=== PATIENT | female | born 1940 | race Caucasian/White ===

== ENCOUNTER 2020-04-10 14:30 | Outpatient (CLI) | payer MEDICARE, OTHER, SELFPAY ==
--- NOTE | ~2020-04-10 | MM_ITS ---
EXAMINATION: MM screening brenda BI w shiv HISTORY: Screening mammogram TECHNIQUE: Craniocaudal and mediolateral oblique 3-D tomosynthesis images were obtained and synthetic 2-D images were generated. CAD analysis was submitted and interpreted. COMPARISON: No prior mammogram is available for comparison at this institution. BREAST PARENCHYMAL COMPOSITION: There are scattered areas of fibroglandular density. FINDINGS: There is no evidence of suspicious mass, calcification, or architectural distortion to sugg est malignancy in either breast. There has been no suspicious interval change. IMPRESSION: 1. No mammographic evidence of malignancy. 2. Recommend routine screening mammography in one year. BI-RADS Category 1: Negative Reviewed, dictated and finalized at location A.
== END 2020-04-10 14:31 | disposition home or self-care (01) ==
LOC: ANHIMG 14:37
DX: Z12.31 Encounter for screening mammogram for malignant neoplasm of breast (principal)
CPT/HCPCS: 77063; 77067

== ENCOUNTER 2021-04-12 09:26 | Outpatient (CLI) | payer MEDICARE, OTHER, SELFPAY ==
--- NOTE | ~2021-04-12 | MM_ITS ---
EXAMINATION: MM screening brenda BI w shiv HISTORY: Screening mammogram TECHNIQUE: Craniocaudal and mediolateral oblique 3-D tomosynthesis images were obtained and synthetic 2-D images were generated. CAD analysis was submitted and interpreted. COMPARISON: 04/10/2020 BREAST PARENCHYMAL COMPOSITION: The breasts are heterogeneously dense, which may obscure small masses . FINDINGS: Scattered benign-appearing calcifications are present. There is no evidence of suspicious m ass, calcification, or architectural distortion to suggest malignancy in either breast. There has bee n no suspicious interval change. IMPRESSION: 1. No mammographic evidence of malignancy. 2. Recommend routine screening mammography while the patient remains in good health. BI-RADS Category 2: Benign finding(s). Reviewed, dictated and finalized at location A. IMPRESSION: 1. No mammographic evidence of malignancy. 2. Recommend routine screening mammography while the patient remains in good he alth. BI-RADS Category 2: Benign finding(s).
== END 2021-04-12 09:27 | disposition home or self-care (01) ==
DX: Z12.31 Encounter for screening mammogram for malignant neoplasm of breast (principal)
CPT/HCPCS: 77063; 77067

== ENCOUNTER 2021-07-18 07:20 | Emergency (ER) | payer MEDICARE, OTHER, SELFPAY ==
[2021-07-18] VITALS (25 sets, daily range): BP systolic 93–139; BP diastolic 47–77; PULSE 55–72; RESP 18–20; TEMP 36.4–36.7; O2SAT 94–100
--- NOTE | ~2021-07-18 | CT_ITS ---
EXAMINATION: CT chest abdomen pelvis wo con DATE: 07/18/2021 10:57 INDICATION: Back pain, concern for aortic dissection, contrast allergy TECHNIQUE: Transaxial computed tomographic images of the chest, abdomen, and pelvis were obtained aft er the administration of without intravenous contrast. The dose-length product (DLP) was 385.47 mGy-c m. Automated exposure control and iterative reconstruction technique were employed. COMPARISON: None FINDINGS: CHEST CT: The thoracic aorta is normal in caliber. Within the limitations of noncontrast examination, no dissec tion is identified. There is mild atelectasis. A moderate-sized sliding hiatal hernia is noted. There are scattered nodules measuring 1 to 2 mm. Cardiomegaly is noted. There are no pathologically enlarg ed thoracic lymph nodes. There is a 1.5 cm nodule of the left thyroid lobe. There is severe thoracic spondylosis. ABDOMEN/PELVIS CT: The abdominal aorta is normal in caliber. Within the limitations of noncontrast examination, no disse ction is identified. Punctate calcifications in otherwise normal appearing liver and spleen likely re present healed granulomatous disease. The pancreas, gallbladder, and adrenal glands are normal. Hemor rhagic cysts of the kidneys measure up to 9 mm on the right. No stones are identified in the kidneys, ureters, or bladder. There is no hydronephrosis or hydroureter. No pathologically enlarged abdominal or pelvic lymph nodes are identified. There is no free intraperitoneal gas or evidence of bowel obst ruction. Colonic diverticulosis is present without evidence of diverticulitis. The appendix is normal . There is severe lumbar spondylosis. IMPRESSION: 1. No aneurysm or dissection of the aorta within the limitations of noncontrast examination. 2. Cardiomegaly. Reviewed, dictated and finalized at location A.
--- NOTE | ~2021-07-18 | XR_ITS ---
EXAMINATION: XR lumbar spine 2-3V, XR thoracic spine 3V DATE: 07/18/2021 09:24 INDICATION: Right-sided mid and lower back pain TECHNIQUE: 1. Anteroposterior, lateral and lateral swimmer's views of the thoracic spine were obtained. 2. AP, lateral and coned-down lateral lumbosacral views of the lumbar spine were obtained. COMPARISON: Chest radiograph dated 09/14/2013 FINDINGS: Thoracic spine: 1-2 mm anterolisthesis C4 on C5 with mild disc height loss and 3 mm retrolisthesis C5 on C6 with mode rate disc height loss. Moderate mid to lower thoracic kyphosis. Vertebral body heights are normal. Mu ltilevel disc height loss, mild in the upper thoracic spine and moderate to severe throughout the mid and lower thoracic spine. Visualized portions of the lungs are clear. No pleural effusion or pneumot horax. Lumbar spine: Minimal lumbar levocurvature. 7 mm retrolisthesis L1 on L2, 5 mm retrolisthesis L2 on L3, 2 mm retrol isthesis L3 on L4 and 3 mm anterolisthesis L4 on L5. Vertebral body heights are normal. Severe disc h eight loss with vacuum phenomena at L1-L2, moderate disc height loss at L2-L3 and mild disc height lo ss at L4-L5 and L5-S1. 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 Mild bilateral sacroiliac ost eoarthritis. IMPRESSION: 1. Moderate cervical and moderate to severe thoracic and lumbar spondylosis. No acute osseous abnorma lity. Reviewed, dictated and finalized at location A. IMPRESSION: 1. Moderate cervical and moderate to severe thoracic and lumbar spondylosis. No acute osseous abnormality.
--- NOTE | ~2021-07-18 | XR_ITS ---
EXAMINATION: XR chest 2V DATE: 07/18/2021 09:24 INDICATION: Right-sided chest pain TECHNIQUE: PA and lateral views of the chest are obtained. COMPARISON: 09/14/2013 FINDINGS: The lungs are free of acute opacities. There is no pleural effusion or pneumothorax. Cardio megaly is noted. There is a small hiatal hernia. There is severe thoracic spondylosis. IMPRESSION: 1. Cardiomegaly. Reviewed, dictated and finalized at location A. IMPRESSION: 1. Cardiomegaly.
[2021-07-18 07:47] LABS: Basophils Percent Auto 0.2 % (0.2-1.2); Eosinophils Absolute Auto 0.1 K/mm3 (0-0.3); Eosinophils Percent Auto 0.9 % (0-4.4); Hematocrit 39.3 % (37.0-47.0); Hemoglobin 13.2 g/dL (12.0-15.0); Immature Granulocyte Absolute 0.02 K/mm3 (0.00-0.031); Immature Granulocyte Percent A 0.4 % (0-0.5); Lymphocytes Absolute Auto 1.22 K/mm3 (0.9-3.2); Lymphocytes Percent Auto 22.7 % (18.3-44.2); Mean Corpuscular HGB Conc 33.6 g/dl (32-36); Mean Corpuscular Hemoglobin 31.7 pg (26-34); Mean Corpuscular Volume 94.2 fl (80-100); Mean Platelet Volume 10.5 fl (7.4-10.4); Monocytes Absolute Auto 0.3 K/mm3 (0.1-0.6); Monocytes Percent Auto 4.7 % (2.6-8.5); Neutrophils Absolute Auto 3.8 K/mm3 (1.3-6.7); Neutrophils Percent Auto 71.1 % (45.5-73.1); Platelet Count Result 150 k/mm3 (150-375); Red Blood Count 4.17 M/mm3 (4.2-5.4); Red Cell Distribution Width 12.9 % (11.5-14.5); White Blood Count 5.4 K/mm3 (4.5-10.0)
[2021-07-18 08:05] LABS: Anion Gap 8 mmol/L (8-16); Blood Urea Nitrogen 17 mg/dL (7-17); Calcium 9.1 mg/dL (8.4-10.2); Carbon Dioxide 27 mmol/L (22-30); Chloride 101 mmol/L (98-107); Estimated CRCL calculation 54 ml/min; Estimated Glomerular Filt Rate > 60; Glucose 147 mg/dL (65-110); Potassium 4.3 mmol/L (3.4-5.0); Sodium 136 mmol/L (137-145)
[2021-07-18 08:05] LABS: Add Urine Microscopic? YES; Appearance Urine Clear (Clear); Bilirubin Urine Negative (Negative); Color Urine Yellow (Yellow); Glucose Urine UA Negative (Negative); Ketones Urine Negative (Negative); Leukocyte Esterase Ur 3+ LEU/UL (Negative); Nitrate Urine Negative (Negative); Protein Urine Negative (Negative); Specific Grav Ur 1.018 (1.001-1.035); Squamous Epithelial Cell Urine Occasional /hpf (Few); Urobilinogen Urine Negative mg/dL (<2.0)
[2021-07-18 08:10] LABS: Blood Urine Negative (Negative)
--- NOTE | 2021-07-18 09:29 | ED.BACK ---
HPI - Back Pain/Injury General Chief Complaint: Back Pain/Injury Stated Complaint: rt back pain Time Seen by Provider: 07/18/21 08:21 Source: patient and RN notes reviewed Mode of arrival: ambulatory Limitations: no limitations History of Present Illness HPI Narrative: 80 years old white female presented to the ED with pain at the right lower ribs and right flank area posteriorly started in the middle of the night, patient could not sleep, patient denies any aggravating or relieving factors, no recent trauma. Patient been doing water arthritis class III times a week for 2 years. Patient denies any radiation of pain, shortness of breath, chest pain, lightheadedness, abdominal pain or rash history of hypertension and hyperlipidemia, on baby aspirin once a day, fully vaccinated for COVID-19 Related Data Home Medications Medication Instructions Recorded Confirmed alendronate 70 mg tablet 70 mg PO WEEKLY 06/11/21 07/18/21 aspirin 81 mg tablet,delayed 81 mg PO DAILY 06/11/21 07/18/21 release atorvastatin 10 mg tablet 10 mg PO DAILY 06/11/21 07/18/21 calcium carbonate 600 mg calcium 600 mg PO DAILY 06/11/21 07/18/21 (1,500 mg) tablet carvedilol 12.5 mg tablet 12.5 mg PO Q12H 06/11/21 07/18/21 cholecalciferol (vitamin D3) 25 25 mcg PO DAILY 06/11/21 07/18/21 mcg (1,000 unit) capsule fluorometholone 0.1 % eye ointment 1 applic EACH EYE Q4H 06/11/21 07/18/21 lisinopril 20 mg tablet 20 mg PO DAILY 06/11/21 07/18/21 multivitamin 1 tablet PO DAILY 06/11/21 07/18/21 omeprazole 20 mg capsule,delayed 20 mg PO DAILY 06/11/21 07/18/21 release vit C 250 mg-vit E 90 mg-zinc 40 1 tablet PO BID 06/11/21 07/18/21 mg-copper 1 [id number] capsule Allergies Allergy/AdvReac Type Severity Reaction Status Date / Time clindamycin Allergy Mild Hives / Verified 07/18/21 12:50 Red Face Aminoglycosides AdvReac Mild Unknown Verified 07/18/21 12:50 Contrast Media Allergy Unknown Rash Uncoded 09/17/21 12:50 Review of Systems Review of Systems: CONSTITUTIONAL: Denies fever, chills, or sweats. EYES: Denies visual changes, redness, or discharge. ENT: Denies rhinorrhea, congestion, sore throat, or otalgia. CARDIOVASCULAR: Denies chest pain, palpitations, or edema. RESPIRATORY: Denies cough or dyspnea. GASTROINTESTINAL: Denies abdominal pain, nausea, vomiting, or diarrhea. GENITOURINARY: Denies dysuria or hematuria. SKIN: Denies rash or itching. MUSCULOSKELETAL: Denies back pain, joint pain, or myalgia. NEUROLOGIC: Denies headache, numbness, or weakness. PSYCHIATRIC: Denies anxiety or depression. [facility] Social History Social History Smoking status: Never smoker Second hand tobacco smoke exposure: No Alcohol intake: never Substance use: never Exam Narrative: General appearance: Well-developed, well-nourished, patient is restless Skin: Normal color Head: Normocephalic, nontraumatic Eyes: Clear conjunctiva ENT: Oropharynx normal, ears normal, nose normal Neck: Supple, nontender Chest and respiratory: Airway patent, no respiratory distress, no accessory muscle use Heart: Regular rate/rhythm Abdomen: Soft, nontender, no organomegaly, quiet bowel sounds Vascular: Normal peripheral pulses, normal capillary refill. Musculoskeletal: Back exam showed scoliosis, kyphosis, no localized tenderness, no bruises, no rash Neurologic: Alert and oriented ?3, [employer]ITION SUPERVISOR is normal as tested, no gross motor deficit Course Course Emergency Course: Stable Vital Signs Vital signs: Vital Signs Temperature 36.7 C 07/18/21 07:33 Pulse Rate 72 07/18/21 07:33 Respiratory Rate 20 07/18/21 07:33 Blood Pressure
[2021-07-18] MEDS: MORPHINE SULFATE (*CRX) 4 MG/ML INJ IV PUSH (09:44)
[2021-07-18] MEDS: ONDANSETRON INJ 4 MG/2 ML VIAL IV PUSH (09:45)
[2021-07-18 09:46] LABS: D Dimer 0.39 ug/mL (<0.48)
[2021-07-18 11:29] LABS: Alanine Aminotransferase 21 U/L (4-35); Albumin Level 4.4 g/dL (3.5-5.1); Alkaline Phosphatase 77 U/L (38-126); Aspartate Amino Transferase 23 U/L (14-36); Bilirubin,Total 0.5 mg/dL (0.2-1.3)
--- NOTE | 2021-07-18 12:36 | ECG_ITS ---
Measurements Intervals [place] Rate: 57 P: 62 [place]: 171 QRS: -42 QRSD: 110 T: -8 QT: 427 QTc: 416 Interpretive Statements SINUS BRADYCARDIA LEFT AXIS DEVIATION INCOMPLETE RIGHT BUNDLE BRANCH BLOCK VOLTAGE CRITERIA FOR LVH POOR R WAVE PROGRESSION, ANTERIOR LEADS BORDERLINE T WAVE ABNORMALITY- INF/LAT LEADS BORDERLINE ECG Electronically Signed On 07-18-2021 14:06:18 CDT by Kole Blake D.O.
[2021-07-18] MEDS: NITROFURANTOIN MONOHYD MACROCR 100 MG CAP PO (12:51)
[2021-07-18] MEDS: KETOROLAC 15 MG/ML VIAL (*BKC) IV PUSH (12:52)
[2021-07-18 14:12] LABS: Troponin I < 0.012 ng/mL (0.000-0.034)
== END 2021-07-18 14:50 | disposition home or self-care (01) ==
PROVIDERS: Emergency Provider Emergency Medicine; PCP Internal Medicine
DX: N39.0 Urinary tract infection, site not specified (principal); M54.9 Dorsalgia, unspecified; I10 Essential (primary) hypertension; E78.5 Hyperlipidemia, unspecified; Z79.82 Long term (current) use of aspirin
CPT/HCPCS: 36415; 71046; 71250; 72072; 72100; 74176; 80048; 80076; 81001; 84484; 85025; 85380; 87086; 93005; 96374; 96375; 99284; A9270; J1885; J2270; J2405

== ENCOUNTER 2022-05-05 08:31 | Outpatient (CLI) | payer MEDICARE, OTHER, SELFPAY ==
--- NOTE | ~2022-05-05 | MM_ITS ---
EXAMINATION: MM screening brenda BI w shiv HISTORY: Screening TECHNIQUE: Craniocaudal and mediolateral oblique 3-D tomosynthesis images were obtained and synthetic 2-D images were generated. CAD analysis was submitted and interpreted. COMPARISON: Comparison to multiple prior studies sequentially, with oldest reviewed study dated 04/10. BREAST PARENCHYMAL COMPOSITION: The breasts are heterogeneously dense, which may obscure small masses . FINDINGS: There is no evidence of suspicious mass, calcification, or architectural distortion to sugg est malignancy in either breast. There has been no suspicious interval change. IMPRESSION: 1. No mammographic evidence of malignancy. 2. Recommend routine screening mammography in one year. BI-RADS Category 1: Negative Reviewed, dictated and finalized at location A.
== END 2022-05-05 08:32 | disposition home or self-care (01) ==
PROVIDERS: Visit Provider Family Medicine
DX: Z12.31 Encounter for screening mammogram for malignant neoplasm of breast (principal)
CPT/HCPCS: 77063; 77067

== ENCOUNTER 2022-06-15 00:49 | Day surgery (SDC) | payer MEDICARE, OTHER, SELFPAY ==
[2022-06-12 13:24] VITALS: BMI 22.8
[2022-06-15] VITALS (10 sets, daily range): BP systolic 120–142; BP diastolic 60–87; PULSE 59–81; RESP 11–16; TEMP 36.8; O2SAT 95–100; BMI 23.1
--- NOTE | 2022-06-15 09:24 | WPDMODSED ---
Moderate Sedation Note-Pt Data Patient Data Diagnosis: Valvular heart disease Present Complaint: Shortness of breath and valvular heart disease Procedure to be performed/Plan: JOHNNY Moderate sedation Agitated saline study Allergies Allergy/AdvReac Type Severity Reaction Status Date / Time clindamycin Allergy Mild Hives / Verified 06/15/22 07:53 Red Face perflutren Allergy Rash Verified 06/15/22 07:53 Aminoglycosides AdvReac Mild Unknown Verified 06/15/22 07:53 Home Medications Medication Instructions Recorded Confirmed Type aspirin 81 mg tablet,delayed 81 mg PO DAILY 06/11/21 06/12/22 History release atorvastatin 10 mg tablet 10 mg PO DAILY 06/11/21 06/12/22 History calcium carbonate 600 mg calcium 600 mg PO HS 06/11/21 06/12/22 History (1,500 mg) tablet (Calcium) carvedilol 12.5 mg tablet 12.5 mg PO Q12H 06/11/21 06/12/22 History cholecalciferol (vitamin D3) 25 25 mcg PO DAILY 06/11/21 06/12/22 History mcg (1,000 unit) capsule fluorometholone 0.1 % eye ointment 1 applic EACH EYE DAILY 06/11/21 06/12/22 History lisinopril 20 mg tablet 20 mg PO DAILY 06/11/21 06/12/22 History multivitamin (Daily Multi-Vitamin 1 tablet PO DAILY 06/11/21 06/12/22 History tablet) omeprazole 20 mg capsule,delayed 20 mg PO DAILY 06/11/21 06/12/22 History release vit C 250 mg-vit E 90 mg-zinc 40 1 tablet PO BID 06/11/21 06/12/22 History mg-copper 1 [id number] capsule (PreserVision AREDS-2) glucosamine-chondroitin 250 mg-200 1 tablet PO 06/12/22 History mg tablet (Osteo Bi-Flex) Sedation/Anesthesia: No previous sedation/anesthesia problems (including family history). [facility], [facility] Social History Social History Smoking status: Never smoker Second hand tobacco smoke exposure: No Alcohol intake: never Substance use: never Substance use type: does not use Living arrangements: alone Spiritual care concerns: No Mod Sed Physical Exam Physical Exam Pre Procedural Exam: Normal: Appearance, Eyes, Ears, Nose, Neck, Throat, Airway, Lungs, Heart Size, Heart Rate, Heart Rhythm, Neuro Exam, Extremities and Skin Hours since solid foods: 12 Hours since liquid intake: 12 Mallampati Classification: class II Internal Medicine - PN: Obj Da Vital Signs Vital Signs: Vital Signs - 24 hr 06/15/22 07:59 Temperature 36.8 C Pulse Rate 66 Respiratory Rate 13 Blood Pressure 134/65 Pulse Oximetry 97 Oxygen Delivery Room Air ASA Classification/Sedation ASA Classification/Sedation ASA Class: II Emergent: No Risks: Risks, benefits and alternatives explained and patient/family accepted plan for sedation. Patient re-evaluated immediately prior to sedation.
--- NOTE | 2022-06-15 10:34 | WPDTEECHO ---
JOHNNY TransEsophageal Echocardiogram Date of procedure: 06/15/22 Procedure Type: 1. Multiplanar transesophageal echocardiography with color flow and pulse wave Doppler 2. Agitated saline study 3. Moderate sedation Diagnosis: Mitral and tricuspid regurgitation Indications: Mitral and tricuspid regurgitation Image Quality: Good Findings: After discussing the risks, benefits alternatives of procedure patient agreeable via verbal and written informed consent. Risks discussed included esophageal rupture perforation, , adverse reaction action to Anesthesia, sore throat, bleeding, pain, infection. After time-out was taken and all serial blood pressure assessment, pulse oxygenation and telemetry was established time-out was taken the procedure was started. Procedure start time 9:35 a.m. Procedure stop time 9:51 a.m. Medications provided: A total of 3 mg of Versed and 50 mcg of fentanyl given in divided dosages as well as viscous lidocaine gargle and swallow 10 cc as well as benzocaine spray x2 Medications were administered and patient was monitored by Shantel Wilson Complications: None Blood loss: None Findings: Normal left ventricular size. EF 55%. Severe left atrial enlargement. Mild right atrial enlargement. Normal right ventricular size and function. Tricuspid valve is normal but with severe tricuspid regurgitation. This was better visualized via transthoracic views. The mitral valve has severe prolapse of the anterior mitral leaflet as well as moderate prolapse of the posterior mitral leaflet with severe mitral regurgitation. The aortic valve is trileaflet, mildly sclerotic and with mild aortic insufficiency. Mild pulmonic insufficiency. Aortic root is measured at 2.9 cm and there is mild aortic atherosclerotic disease. There is no pericardial effusion. Left atrial appendage is normal without mass or thrombus with pulse-wave velocities around 50 centimeters/second. Atrial septum is intact without color flow or agitated saline evidence of shunting. Conclusions: 1. Left ventricular ejection fraction 55% 2. Severe mitral and tricuspid regurgitation 3. Mitral regurgitation secondary to bileaflet prolapse 4. Mild aortic insufficiency 5. Intact atrial septum 6. Moderate sedation Recommendations: Plan for left and right heart catheterization in preparation for valve surgery
== END 2022-06-15 12:05 | disposition home or self-care (01) ==
PROVIDERS: PCP Family Medicine; Visit Provider Internal Medicine Cardiovascular Disease
PROC: (CPT 93312; principal; 2022-06-15 08:30)
DX: R93.1 Abnormal findings on diagnostic imaging of heart and coronary circulation (principal); I34.0 Nonrheumatic mitral (valve) insufficiency; I49.9 Cardiac arrhythmia, unspecified; I47.1 Supraventricular tachycardia; R06.02 Shortness of breath; E87.5 Hyperkalemia; M19.90 Unspecified osteoarthritis, unspecified site; Z79.82 Long term (current) use of aspirin; I36.1 Nonrheumatic tricuspid (valve) insufficiency; I70.0 Atherosclerosis of aorta
CPT/HCPCS: 93312; 93320; 93325; J2250; J2310; J3010; J7040

== ENCOUNTER 2022-06-26 00:45 | Day surgery (SDC) | payer MEDICARE, OTHER, SELFPAY ==
[2022-06-24 15:50] VITALS: BMI 23.0
[2022-06-26] VITALS (9 sets, daily range): BP systolic 111–147; BP diastolic 50–65; PULSE 61–78; RESP 14–20; TEMP 36.3–36.7; O2SAT 94–98; BMI 22.3
--- NOTE | 2022-06-26 08:00 | SUR.PREOP ---
PT. BROUGHT IN OWN FINAL DOSES OF PREDNISONE 50MG PO AND BENADRYL 50MG PO FOR CARDIAC CATH PRE MEDICATION. BOTH PREDNISONE AND BENADRYL TAKEN AT THIS TIME.
[2022-06-26 08:18] LABS: Basophils Percent Auto 0.2 % (0.2-1.2); Hematocrit 41.1 % (37.0-47.0); Immature Granulocyte Absolute 0.01 K/mm3 (0.00-0.031); Immature Granulocyte Percent A 0.2 % (0-0.5); Lymphocytes Absolute Auto 1.06 K/mm3 (0.9-3.2); Lymphocytes Percent Auto 25.8 % (18.3-44.2); Mean Corpuscular HGB Conc 34.1 g/dl (32-36); Mean Corpuscular Hemoglobin 31.3 pg (26-34); Mean Corpuscular Volume 91.9 fl (80-100); Mean Platelet Volume 10.4 fl (7.4-10.4); Monocytes Percent Auto 0.7 % (2.6-8.5); Neutrophils Percent Auto 73.1 % (45.5-73.1); Platelet Count Result 170 k/mm3 (150-375); Red Blood Count 4.47 M/mm3 (4.2-5.4); Red Cell Distribution Width 12.9 % (11.5-14.5); White Blood Count 4.1 K/mm3 (4.5-10.0)
[2022-06-26] MEDS: SODIUM CHLORIDE 0.9% IV 500 ML 100 ML IV CONT (08:30)
[2022-06-26 08:31] LABS: Anion Gap 8 mmol/L (8-16); Blood Urea Nitrogen 18 mg/dL (7-17); Calcium 9.6 mg/dL (8.4-10.2); Carbon Dioxide 27 mmol/L (22-30); Chloride 101 mmol/L (98-107); Estimated CRCL calculation 46 ml/min; Estimated Glomerular Filt Rate > 60; Glucose 184 mg/dL (65-110); Potassium 4.3 mmol/L (3.4-5.0); Sodium 136 mmol/L (137-145)
--- NOTE | 2022-06-26 09:03 | WPDMODSED ---
Moderate Sedation Note-Pt Data Patient Data Diagnosis: Mitral regurgitation/ tricuspid regurgitation Present Complaint: no complaints this morning Procedure to be performed/Plan: right and left heart catheterization Allergies Allergy/AdvReac Type Severity Reaction Status Date / Time clindamycin Allergy Mild Hives / Verified 06/26/22 08:10 Red Face Iodinated Contrast Media Allergy Rash Verified 06/26/22 08:10 perflutren Allergy Rash Verified 06/26/22 08:10 Aminoglycosides AdvReac Mild Unknown Verified 06/26/22 08:10 Home Medications Medication Instructions Recorded Confirmed Type aspirin 81 mg tablet,delayed 81 mg PO DAILY 06/11/21 06/24/22 History release atorvastatin 10 mg tablet 10 mg PO DAILY 06/11/21 06/26/22 History calcium carbonate 600 mg calcium 600 mg PO HS 06/11/21 06/26/22 History (1,500 mg) tablet (Calcium) carvedilol 12.5 mg tablet 6.25 mg PO Q12H 06/11/21 06/26/22 History cholecalciferol (vitamin D3) 25 25 mcg PO DAILY 06/11/21 06/26/22 History mcg (1,000 unit) capsule fluorometholone 0.1 % eye ointment 1 applic EACH EYE DAILY 06/11/21 06/26/22 History lisinopril 20 mg tablet 20 mg PO DAILY 06/11/21 06/26/22 History multivitamin (Daily Multi-Vitamin 1 tablet PO DAILY 06/11/21 06/24/22 History tablet) omeprazole 20 mg capsule,delayed 20 mg PO DAILY 06/11/21 06/26/22 History release glucosamine-chondroitin 250 mg-200 1 tablet PO DAILY 06/12/22 06/26/22 History mg tablet (Osteo Bi-Flex) Current Medications: Active Medications Sodium Chloride (Normal Saline Iv) 500 mls @ 100 mls/hr IV CONT .Q5H KIRSTIN Sedation/Anesthesia: No previous sedation/anesthesia problems (including family history). [facility] Social History Social History Smoking status: Never smoker Second hand tobacco smoke exposure: No Alcohol intake: never Substance use: never Substance use type: does not use Spiritual care concerns: No Mod Sed Physical Exam Physical Exam Pre Procedural Exam: Normal: Appearance, Neck, Throat, Airway, Lungs, Heart Size, Heart Rate, Heart Rhythm, Neuro Exam and Extremities Hours since solid foods: 12 Hours since liquid intake: 12 Mallampati Classification: class II Internal Medicine - PN: Obj Da Vital Signs Vital Signs: Vital Signs - 24 hr 06/26/22 08:10 Temperature 36.7 C Pulse Rate 74 Respiratory Rate 14 Blood Pressure 128/65 Pulse Oximetry 95 Oxygen Delivery Room Air Meds/Results Medications: Active Medications Generic Name Dose Route Start Last Admin Trade Name Freq PRN Reason Stop Dose Admin Sodium Chloride 500 mls @ 100 mls/hr 06/26/22 07:30 Normal Saline Iv IV CONT .Q5H KIRSTIN Labs CBC & Chem 7: 06/26/22 08:01 06/26/22 08:01 Labs: Laboratory Results - last 24 hr 06/26/22 06/26/22 08:01 08:01 WBC 4.1 L RBC 4.47 Hgb 14.0 Hct 41.1 MCV 91.9 MCH 31.3 MCHC 34.1 RDW 12.9 Plt Count 170 MPV 10.4 Immature Gran % (Auto) 0.2 Neut % (Auto) 73.1 Lymph % (Auto) 25.8 [place] % (Auto) 0.7 L Eos % (Auto) 0.0 Baso % (Auto) 0.2 Lymph # (Auto) 1.06 [place] # (Auto) 0.0 L Eos # (Auto) 0.0 Baso # (Auto) 0.0 Abs Immat Gran (auto) 0.01 Absolute Neuts (auto) 3.0 Absolute Nucleated RBC 0.0 Nucleated RBC % 0.0 Sodium 136 L Potassium 4.3 Chloride 101 Carbon Dioxide 27 Anion Gap 8 BUN 18 H Creatinine 0.70 Estim Creat Clear Calc 46 Estimated GFR > 60 Glucose 184 H Calcium 9.6 ASA Classification/Sedation ASA Classification/Sedation ASA Class: II Emergent: No Risks: Risks, benefits and alternatives explained and patient/family accepted plan for sedation. Patient re-evaluated immediately prior to sedation.
--- NOTE | 2022-06-26 10:06 | P.PCNCC_ITS ---
Cardiac Cath Procedure Note Date of procedure:: 06/26/22 Performing physician:: Eduardo Brothers MD Indication:: valvular heart disease, preop catheterization Brief clinical history:: this is an 81-year-old woman found to have significant mitral and tricuspid valve regurgitation referred for right and left heart catheterization in anticipation of surgical consultation Procedure Procedure performed:: right and left heart catheterization Sedation/Medication given:: fentanyl 25 mg/Versed 2 mg case start time 9:30 a.m. case end time 10:03 a.m. Access site:: right femoral artery/right femoral vein Estimated blood loss:: 20 cc Procedure note:: patient was brought to the cardiac catheterization lab in the postabsorptive state where the right femoral triangle was prepared and draped in the usual fashion. Anesthesia was provided with 1% lidocaine infiltrated locally. Using the modified Seldinger technique the femoral artery was punctured and a 5 [place] vascular sheath was placed. After this the femoral vein was punctured and a 7 [place] vascular sheath was placed. I then used a balloon tip [place]iver-Shi catheter to measure right-sided hemodynamics, thermodilution cardiac outputs and sample AV O2 difference. The Whiteriver-Shi catheter was then removed. I then used a 5 [place] angled pigtail catheter to measure left-sided hemodynamics, pullback pressures across the aortic valve and inject the left ventriculogram in the 30 degree GORDON projection. Following this a 5 [place] FL4 catheter was used to engage and inject the left coronary artery in multiple projections. Then a 5 [place] JR4 catheter was used to engage and inject the right coronary artery in orthogonal projections. The cineangiograms were then reviewed and the case was terminated. An angiogram was done of the femoral artery through the sheath after which a 6 [place] Angio-Seal device was used to secure arterial hemostasis with good result. The venous sheath was then removed in the hemodialysis lab technician with manual pressure. She was taken to the holding area in stable condition with no signs of any procedural complications and no evidence of a groin hematoma. Findings:: Hemodynamics: Right atrial pressure was 7 mmHg, pulmonary artery 26/7, pulmonary capillary wedge pressure 8. Zara cardiac output 3 4 liters/minute. Cardiac index 2.2. Central is 18 over 48 left ventricle 118/0 end-diastolic 10. Left ventricle: The left ventricle is normal in size contractility appears to be hyperdynamic with an ejection fraction of 70%. There is bileaflet mitral valve prolapse with at least moderate if not severe MR. The left main coronary artery is nicely patent the left anterior descending is a medium caliber artery extending down to the apex the LAD and its branches are angiographically normal. The circumflex is a medium caliber artery giving rise to the marginal branches. The circumflex system is smooth and angiographically normal. The right coronary artery is dominant to the posterior circulation and of medium caliber the right coronary artery is also smooth and angiographically normal. Conclusion:: 1. Right coronary dominant circulation with no angiographic evidence of coronary artery disease 2. vigorous left ventricular systolic function with bileaflet mitral valve prolapse and significant mitral regurgitation. 3. normal pulmonary artery pressures Eduardo Brothers MD FACC
== END 2022-06-26 14:20 | disposition home or self-care (01) ==
PROVIDERS: PCP Family Medicine; Visit Provider Specialist
PROC: 4A023N8 Measurement of Cardiac Sampling and Pressure, Bilateral, Percutaneous Approach (ICD-10-PCS; CPT 93453; principal; 2022-06-26 09:00)
DX: I34.0 Nonrheumatic mitral (valve) insufficiency (principal); I36.1 Nonrheumatic tricuspid (valve) insufficiency; Z79.82 Long term (current) use of aspirin; I47.1 Supraventricular tachycardia; R06.02 Shortness of breath; I49.9 Cardiac arrhythmia, unspecified; E87.5 Hyperkalemia; M19.90 Unspecified osteoarthritis, unspecified site; I34.1 Nonrheumatic mitral (valve) prolapse; I27.20 Pulmonary hypertension, unspecified
CPT/HCPCS: 36415; 80048; 85025; 93460; C1760; C1769; C1887; C1894; G0269; J1644; J2250; J3010; J7040

== ENCOUNTER 2022-07-06 23:38 | Emergency (ER) | payer MEDICARE, OTHER, SELFPAY ==
[2022-07-06 23:45] VITALS: BP 123/70; PULSE 77; RESP 18; TEMP 36.2; O2SAT 100
[2022-07-06 23:57] VITALS: PULSE 76
[2022-07-07] VITALS (10 sets, daily range): BP systolic 98–116; BP diastolic 50–74; PULSE 65–85; RESP 13–21; TEMP 36.6; O2SAT 98–100
--- NOTE | 2022-07-07 | ECG_ITS ---
Measurements Intervals [place] Rate: 73 P: 48 CO: 191 QRS: -42 QRSD: 105 T: -1 QT: 369 QTc: 407 Interpretive Statements SINUS RHYTHM LEFT AXIS DEVIATION INCOMPLETE RIGHT BUNDLE BRANCH BLOCK LEFT VENTRICULAR HYPERTROPHY POOR R WAVE PROGRESSION, ANTERIOR LEADS BASELINE WANDER- AVF BORDERLINE ECG COMPARED TO ECG 07/07/2022 00:00:03 NO SIGNIFICANT CHANGES Electronically Signed On 07-07-2022 6:29:24 CDT by Kole Blake D.O.
[2022-07-07 00:13] LABS: Basophils Percent Auto 0.6 % (0.2-1.2); Eosinophils Absolute Auto 0.2 K/mm3 (0-0.3); Eosinophils Percent Auto 3.5 % (0-4.4); Hematocrit 36.5 % (37.0-47.0); Immature Granulocyte Absolute 0.07 K/mm3 (0.00-0.031); Immature Granulocyte Percent A 1.3 % (0-0.5); Lymphocytes Absolute Auto 1.93 K/mm3 (0.9-3.2); Lymphocytes Percent Auto 37.1 % (18.3-44.2); Mean Corpuscular HGB Conc 32.9 g/dl (32-36); Mean Corpuscular Hemoglobin 31.3 pg (26-34); Mean Corpuscular Volume 95.3 fl (80-100); Mean Platelet Volume 10.4 fl (7.4-10.4); Monocytes Absolute Auto 0.5 K/mm3 (0.1-0.6); Monocytes Percent Auto 9.2 % (2.6-8.5); Neutrophils Absolute Auto 2.5 K/mm3 (1.3-6.7); Neutrophils Percent Auto 48.3 % (45.5-73.1); Platelet Count Result 150 k/mm3 (150-375); Red Blood Count 3.83 M/mm3 (4.2-5.4); Red Cell Distribution Width 13.1 % (11.5-14.5); White Blood Count 5.2 K/mm3 (4.5-10.0)
[2022-07-07 00:24] LABS: INR 1.1; Prothrombin Time 13.9 Seconds (11.1-14.7)
[2022-07-07 00:25] LABS: Alanine Aminotransferase 19 U/L (6-35); Alkaline Phosphatase 87 U/L (38-126); Anion Gap 6 mmol/L (8-16); Aspartate Amino Transferase 25 U/L (14-36); Bilirubin,Total 0.3 mg/dL (0.2-1.3); Blood Urea Nitrogen 20 mg/dL (7-17); Calcium 8.9 mg/dL (8.4-10.2); Carbon Dioxide 24 mmol/L (22-30); Chloride 104 mmol/L (98-107); Estimated CRCL calculation 53 ml/min; Estimated Glomerular Filt Rate > 60; Glucose 108 mg/dL (65-110); Lipase 187 U/L (23-300); Partial Thromboplastin Time 34.5 SECONDS (22.3-36.8); Potassium 4.2 mmol/L (3.4-5.0); Sodium 134 mmol/L (137-145)
[2022-07-07 00:36] LABS: Troponin I < 0.012 ng/mL (0.000-0.034)
--- NOTE | 2022-07-07 01:17 | ED.CHESTPAIN ---
HPI - Chest Pain General Chief Complaint: Chest Pain Stated Complaint: palpations Time Seen by Provider: 07/06/22 23:44 History of Present Illness HPI narrative: Patient is an 81-year-old female who presents ER with palpitations. Reports she laid down to sleep and can feel a hard heartbeat. She would sit up and it would resolve and then return when she would lay back down. This happened for about an hour. She is having no symptoms at this time. She does report some exertional dyspnea which has been a chronic issue. Recently she was worked up and found to have significant valvular disease with regurgitation of her mitral valve and tricuspid valve. She has been referred to a cardiothoracic surgeon. She also had a cardiac catheterization that did not reveal any significant coronary disease. She has no chest pain. No fevers or chills or sweats. No additional concerns at this time. Related Data Home Medications Medication Instructions Recorded Confirmed aspirin 81 mg tablet,delayed 81 mg PO DAILY 06/11/21 06/24/22 release atorvastatin 10 mg tablet 10 mg PO DAILY 06/11/21 06/26/22 calcium carbonate 600 mg calcium 600 mg PO HS 06/11/21 06/26/22 (1,500 mg) tablet (Calcium) carvedilol 12.5 mg tablet 6.25 mg PO Q12H 06/11/21 06/26/22 cholecalciferol (vitamin D3) 25 25 mcg PO DAILY 06/11/21 06/26/22 mcg (1,000 unit) capsule fluorometholone 0.1 % eye ointment 1 applic EACH EYE DAILY 06/11/21 06/26/22 lisinopril 20 mg tablet 20 mg PO DAILY 06/11/21 06/26/22 multivitamin (Daily Multi-Vitamin 1 tablet PO DAILY 06/11/21 06/24/22 tablet) omeprazole 20 mg capsule,delayed 20 mg PO DAILY 06/11/21 06/26/22 release glucosamine-chondroitin 250 mg-200 1 tablet PO DAILY 06/12/22 06/26/22 mg tablet (Osteo Bi-Flex) Allergies Allergy/AdvReac Type Severity Reaction Status Date / Time clindamycin Allergy Mild Hives / Verified 06/26/22 08:10 Red Face Iodinated Contrast Media Allergy Rash Verified 06/26/22 08:10 perflutren Allergy Rash Verified 06/26/22 08:10 Aminoglycosides AdvReac Mild Unknown Verified 06/26/22 08:10 Review of Systems Review of Systems: All systems reviewed & are unremarkable except as noted in HPI and below Constitutional: Constitutional: Denies chills, Denies fatigue and Denies fever(s) ENT: Denies nasal congestion and Denies sore throat Cardiovascular: Cardiovascular: Denies chest pain, Denies rapid heart rate and Denies radiating jaw, neck or arm pain Comments: Palpitations Respiratory: Respiratory: Denies cough and Denies dyspnea Gastrointestinal: Gastrointestinal: Denies abdominal pain, Denies nausea and Denies vomiting Neurologic: Denies dizziness and Denies syncope PMFSH Past Medical History Medical History (Updated 07/07/22 @ 01:27 by Chad Sarkar MD) GERD (gastroesophageal reflux disease) Hyperlipidemia Hypertension Mitral valve regurgitation Tricuspid regurgitation Surgical History Surgical History (Updated 07/07/22 @ 01:24 by Chad Sarkar MD) History of left heart catheterization Social History Social History Smoking status: Never smoker Second hand tobacco smoke exposure: No Alcohol intake: never Substance use: never Substance use type: does not use Spiritual care concerns: No Exam Narrative: GENERAL: Well-appearing, well-nourished, and in no acute distress. HEAD: Normocephalic, atraumatic. EYES: PERRL and EOMI. CHEST: Clear to auscultation. No respiratory distress. HEART: Regular rate and rhythm. Normal peripheral pulses. ABDOMEN: Soft, nontender, nondistended. EXTREMITIES: Normal range of motion. No edema. SKIN: Warm, dry, no rash. NEURO: Alert and oriented x3. PSYCH: Normal mood and affect. Course Course Emergency Course: Patient resting comfortably. Cannot reproduce symptoms at this time. Blood patient occasional PVC on monitor that does not correlate with patient's sy
== END 2022-07-07 01:40 | disposition home or self-care (01) ==
PROVIDERS: Emergency Provider Emergency Medicine; PCP Family Medicine
DX: R00.2 Palpitations (principal); I10 Essential (primary) hypertension; I08.1 Rheumatic disorders of both mitral and tricuspid valves; E78.5 Hyperlipidemia, unspecified; K21.9 Gastro-esophageal reflux disease without esophagitis; Z79.82 Long term (current) use of aspirin; I45.10 Unspecified right bundle-branch block; R94.31 Abnormal electrocardiogram [ECG] [EKG]; I51.7 Cardiomegaly
CPT/HCPCS: 36415; 80053; 83690; 84484; 85025; 85610; 85730; 93005; 99284

== ENCOUNTER 2022-12-30 11:00 | Outpatient (RCR) | payer MEDICARE, OTHER, SELFPAY ==
[2022-10-06 08:38] VITALS: PULSE 92
== END 2023-01-11 11:56 | disposition home or self-care (01) ==
LOC: ANHCPREHAB 11:00
PROVIDERS: PCP Family Medicine; Visit Provider Internal Medicine Cardiovascular Disease
DX: Z95.2 Presence of prosthetic heart valve (principal)
CPT/HCPCS: 93798

== ENCOUNTER → 2023-06-29 10:17 | Outpatient (CLI) | payer MEDICARE, OTHER, SELFPAY ==
--- NOTE | ~2023-06-29 | DEXA_ITS ---
Bone Density Report Name: BRAYAN ESCOBAR Age: 82 Sex: Female Ethnicity: White Date of : 1940 Indication: postmenopausal; screening for osteoporosis; height loss; Referring Provider: DANII, CLIFF Patel Study: Bone densitometry was performed. Exam Date: June 29, 2023 Accession number: [id number] Bone Density: Region BMD T-score Z-score Classification AP Spine (L1-L4) 0.973 -0.7 2.2 Normal Femoral Neck (Left) 0.556 -2.6 -0.2 Osteoporosis Total Hip (Left) 0.781 -1.3 1.0 Osteopenia Femoral Neck (Right) 0.587 -2.4 0.1 Osteopenia Total Hip (Right) 0.782 -1.3 1.0 Osteopenia Total Hip Mean 0.782 -1.3 1.0 Osteopenia World Health Organization criteria for BMD impression classify patients as: Normal (T-score at or above -1.0), Osteopenia (T-score between -1.0 and -2.5), or Osteoporosis (T-score at or below -2.5). 10-year Fracture Risk: FRAX not reported because: Some T-score for Spine Total or Hip Total or Femoral Neck at or below -2.5 Clinical Information Provided by Patient: Has used the following medications: Vitamin D, Calcium, MTV Patient maximum height was 67.0 Menopause Age: 49 Drinks caffeinated beverages Onset of menses at age 12 Number of children 2 Impression: The patient has osteoporosis, based on the Left Femoral Neck T-score. Discussion: INCREASED RISK OF FRACTURE. BONE DENSITY IS UNDESIRABLY LOW AT ONE OR MORE SKELETAL SITES, CONSISTENT WITH POSTMENOPAUSAL OSTEOPOROSIS. This patient's lowest T-score meets the World Health Organization's (WHO) criteria for osteoporosis at one or more sites (T-score -2.5 or below). In untreated patients, the risk of osteoporotic fracture increases approximately two-fold for each 1.0 SD decrease in T-score. Low bone density is not the only risk factor for fracture; also consider factors such as patient's age, frailty or poor health, risk of falling, risk of injury, previous osteoporotic fracture, family history of osteoporosis, cigarette smoking, low body weight, etc. Not everyone with low bone mineral density has osteoporosis; osteomalacia and other metabolic bone disorders should also be considered. Patients who have osteoporosis should be evaluated for specific diseases and conditions (secondary causes) that may cause or contribute to bone loss. The [employer]ocrinologists (AACE) and National Osteoporosis Foundation (NOF) recommend pharmacologic intervention for all postmenopausal women whose T-score is in this range. The patient should follow a healthful lifestyle (good nutrition with adequate calcium and vitamin D, and appropriate weight-bearing exercise). Follow-Up: Consider a repeat BMD and Vertebral Fracture Assessment (VFA) exam in 2 years or sooner if medically necessary, to reassess this patient's status. Reported b
--- NOTE | ~2023-06-29 | MM_ITS ---
EXAMINATION: MM screening brenda BI w shiv HISTORY: Screening mammogram, family history of breast cancer in her mother. TECHNIQUE: Craniocaudal and mediolateral oblique 3-D tomosynthesis images were obtained and synthetic 2-D images were generated. CAD analysis was submitted and interpreted. COMPARISON: 05/05/2022, 04/12/2021, 04/10/2020 BREAST PARENCHYMAL COMPOSITION: The breasts are heterogeneously dense, which may obscure small masses . FINDINGS: No suspicious mass, calcification, or architectural distortion are identified in either burke ast to suggest malignancy. There has been no suspicious interval change. IMPRESSION: 1. No mammographic evidence of malignancy. 2. Recommend routine screening mammography while the patient remains in good health. BI-RADS Category 1: Negative Reviewed, dictated and finalized at location A. IMPRESSION: 1. No mammographic evidence of malignancy. 2. Recommend routine screening mammography while the patient remains in good he alth. BI-RADS Category 1: Negative
== END ==
PROVIDERS: PCP Family Medicine; Visit Provider Family Medicine
DX: Z12.31 Encounter for screening mammogram for malignant neoplasm of breast (principal); M81.0 Age-related osteoporosis without current pathological fracture; M85.852 Other specified disorders of bone density and structure, left thigh; M85.851 Other specified disorders of bone density and structure, right thigh
CPT/HCPCS: 77063; 77067; 77080

== ENCOUNTER 2023-07-06 01:12 | Day surgery (SDC) | payer MEDICARE, OTHER, SELFPAY ==
[2023-06-18 13:34] VITALS: BMI 21.6
[2023-07-06 08:13] VITALS: BP 138/88; PULSE 81; RESP 16; TEMP 36.2; O2SAT 97
[2023-07-06] MEDS: LACTATED RINGERS 1,000 ML 150 ML IV CONT (08:15)
[2023-07-06] MEDS: GENTAMICIN 80MG/SOD CHL 50 ML 80 MG/50 ML BAG 100 MG IVPB (08:22)
[2023-07-06] MEDS: AMPICILLIN 2 GM/NS 100 ML 2 GM/100 ML BAG IVPB (08:45)
--- NOTE | 2023-07-06 08:46 | WPDANESEPPF ---
Anes - Initial Pre Proc Eval Procedure: Operation Date: 07/06/23 09:30 Proposed Procedures p Colonoscopy - Tarun Summers MD Date/Time: 07/06/23 08:46 Surgeon: Tarun Summers MD Pre Op Diagnosis: hx colon polyps Patient Data Age: 82 Gender: F Height: 1.65 m Weight: 58.9 kg Last Vital Signs Temp 36.2 C L 07/06/23 08:13 Pulse 81 07/06/23 08:13 Resp 16 07/06/23 08:13 BP 138/88 07/06/23 08:13 Pulse Ox 97 07/06/23 08:13 O2 Del Method Room Air 07/06/23 08:13 Allergies Allergy/AdvReac Type Severity Reaction Status Date / Time clindamycin Allergy Mild Hives / Verified 07/06/23 08:12 Red Face Iodinated Contrast Media Allergy Rash Verified 07/06/23 08:12 perflutren Allergy Rash Verified 07/06/23 08:12 Aminoglycosides AdvReac Mild Unknown Verified 07/06/23 08:12 Home Medications Medication Instructions Recorded Confirmed Type aspirin 81 mg tablet,delayed 81 mg PO DAILY 06/11/21 07/06/23 History release atorvastatin 10 mg tablet 10 mg PO DAILY 06/11/21 07/06/23 History calcium carbonate 600 mg calcium 600 mg PO HS 06/11/21 07/06/23 History (1,500 mg) tablet (Calcium) carvedilol 12.5 mg tablet 3.25 mg PO Q12H 06/11/21 07/06/23 History cholecalciferol (vitamin D3) 25 25 mcg PO DAILY 06/11/21 07/06/23 History mcg (1,000 unit) capsule fluorometholone 0.1 % eye ointment 1 applic EACH EYE DAILY 06/11/21 07/06/23 History multivitamin (Daily Multi-Vitamin 1 tablet PO DAILY 06/11/21 07/06/23 History tablet) omeprazole 20 mg capsule,delayed 20 mg PO DAILY 06/11/21 07/06/23 History release glucosamine-chondroitin 250 mg-200 1 tablet PO DAILY 06/12/22 07/06/23 History mg tablet (Osteo Bi-Flex) Patient hx anesthesia problems: none Family hx anesthesia problems: none Results Review: All pre-operative results and documents have been reviewed as part of the pre-operative evaluation. PMFSH Past Medical History Medical History GERD (gastroesophageal reflux disease) Hyperlipidemia Hypertension Mitral valve regurgitation Tricuspid regurgitation Surgical History Surgical History (Updated 07/06/23 @ 08:46 by Petey Amador MD) History of left heart catheterization S/P thoracotomy Family History Family History Mother Breast cancer Social History Social History Smoking status: Never smoker Second hand tobacco smoke exposure: No Alcohol intake: former Drinks per week: 1 Substance use: never Substance use type: does not use Living arrangements: alone Spiritual care concerns: No Anes - Eval Final PreProcedure Day of Procedure 07/06/23 08:46 Patient weight: normal Heart: regular rate and rhythm Lungs: clear to auscultation Airway: Mallampati scale class II Neurological: alert and oriented Last oral intake: >/= 8 hours ASA classification: III Emergent: no Anesthetic plan: proceed Anesthesia type and monitoring: general GIVS and standard monitoring Results Review: All pre-operative results and documents have been reviewed as part of the pre-operative evaluation. Informed Consent: The patient's anesthetic plan and its attendant risks and benefits were discussed with the patient/family/POA. Questions were solicited and answers provided to the satisfaction of the patient/family/POA.
--- NOTE | 2023-07-06 08:47 | PM.HPGS ---
History of Present Illness History of Present Illness Consent: Risks, benefits, and alternatives have been discussed and questions answered. Patient agrees to proceed with procedure. Chief complaint: hx colon polyps, family hx of colon ca Narrative: Keturah Leonard is a 82 year old female Presents for colonoscopy. Patient has a history of colon polyp previously for followed elsewhere. It has been 5-8 years since last exam. Patient reports her bowel habits are normal with no pain or bleeding. Family history is significant that her father had colon cancer. Patient presents today for screening colonoscopy. Review of Systems Review of Systems: Review of systems noncontributory. [facility] Past Medical History Medical History (Updated 07/06/23 @ 08:49 by Tarun Summers MD) GERD (gastroesophageal reflux disease) Hyperlipidemia Hypertension Mitral valve regurgitation Tricuspid regurgitation Surgical History Surgical History (Updated 07/06/23 @ 08:46 by Petey Amador MD) History of left heart catheterization S/P thoracotomy Family History Family History Mother Breast cancer Social History Social History Smoking status: Never smoker Second hand tobacco smoke exposure: No Alcohol intake: former Drinks per week: 1 Substance use: never Substance use type: does not use Living arrangements: alone Spiritual care concerns: No Meds Home Medications and Allergies Home Medications Medication Instructions Recorded Confirmed Type aspirin 81 mg tablet,delayed 81 mg PO DAILY 06/11/21 07/06/23 History release atorvastatin 10 mg tablet 10 mg PO DAILY 06/11/21 07/06/23 History calcium carbonate 600 mg calcium 600 mg PO HS 06/11/21 07/06/23 History (1,500 mg) tablet (Calcium) carvedilol 12.5 mg tablet 3.25 mg PO Q12H 06/11/21 07/06/23 History cholecalciferol (vitamin D3) 25 25 mcg PO DAILY 06/11/21 07/06/23 History mcg (1,000 unit) capsule fluorometholone 0.1 % eye ointment 1 applic EACH EYE DAILY 06/11/21 07/06/23 History multivitamin (Daily Multi-Vitamin 1 tablet PO DAILY 06/11/21 07/06/23 History tablet) omeprazole 20 mg capsule,delayed 20 mg PO DAILY 06/11/21 07/06/23 History release glucosamine-chondroitin 250 mg-200 1 tablet PO DAILY 06/12/22 07/06/23 History mg tablet (Osteo Bi-Flex) Allergies Allergy/AdvReac Type Severity Reaction Status Date / Time clindamycin Allergy Mild Hives / Verified 07/06/23 08:12 Red Face Iodinated Contrast Media Allergy Rash Verified 07/06/23 08:12 perflutren Allergy Rash Verified 07/06/23 08:12 Aminoglycosides AdvReac Mild Unknown Verified 07/06/23 08:12 Vital Signs Vital Signs - 24 hr 07/06/23 08:13 Temperature 97.2 F L Pulse Rate 81 Respiratory Rate 16 Blood Pressure 138/88 Pulse Oximetry 97 Oxygen Delivery Room Air Exam Narrative: Physical exam reveals patient to be alert. Vital signs stable. HEENT exam is unremarkable. Patient is anicteric. Lungs are clear to auscultation and percussion. Heart is without murmur or extra sounds. Abdomen bowel sounds are present soft nontender with no organomegaly. Digital external rectal exam normal. Assessment and Plan Assessment and plan (1) History of colon polyps: Code(s): Z86.010 - Personal history of colonic polyps Status: Acute Assessment and Plan: Patient has a distant history of colon polyps. Plan for surveillance colonoscopy at this time. Currently she has no symptoms. Further recommendations may be given after endoscopy. (2) Family history of colon cancer in father: Code(s): Z80.0 - Family history of malignant neoplasm of digestive organs Status: Acute Assessment and Plan: Patient reports that her father had colon cancer. Surveillance colonoscopy also recommended for this reason.
[2023-07-06 09:48] VITALS: BP 92/58; PULSE 67; RESP 16; O2SAT 99
[2023-07-06 09:58] VITALS: BP 90/55; PULSE 75; RESP 17; O2SAT 99
[2023-07-06 10:08] VITALS: BP 129/77; PULSE 67; RESP 24; O2SAT 100
== END 2023-07-06 10:17 | disposition home or self-care (01) ==
PROVIDERS: PCP Family Medicine; Visit Provider Internal Medicine Gastroenterology
PROC: 0DJD8ZZ Inspection of Lower Intestinal Tract, Via Natural or Artificial Opening Endoscopic (ICD-10-PCS; CPT 45378; principal; 2023-07-06 09:30)
DX: Z12.11 Encounter for screening for malignant neoplasm of colon (principal); K64.8 Other hemorrhoids; K57.30 Diverticulosis of large intestine without perforation or abscess without bleeding; Z86.010 Personal history of colon polyps; Z80.0 Family history of malignant neoplasm of digestive organs; I10 Essential (primary) hypertension; E78.5 Hyperlipidemia, unspecified; K21.9 Gastro-esophageal reflux disease without esophagitis; I08.1 Rheumatic disorders of both mitral and tricuspid valves; Z79.82 Long term (current) use of aspirin
CPT/HCPCS: G0105; J0290; J1580; J2001; J2704; J7120

== ENCOUNTER 2024-07-04 10:22 | Outpatient (CLI) | payer MEDICARE, OTHER, SELFPAY ==
--- NOTE | ~2024-07-04 | MM_ITS ---
EXAMINATION: MM screening brenda BI w shiv HISTORY: Screening TECHNIQUE: Craniocaudal and mediolateral oblique 3-D tomosynthesis images were obtained and synthetic 2-D images were generated. CAD analysis was submitted and interpreted. COMPARISON: Comparison to multiple prior studies sequentially, with oldest reviewed study dated 04/10. BREAST PARENCHYMAL COMPOSITION: Dense: The breasts are heterogeneously dense, which may obscure small masses FINDINGS: There is no evidence of suspicious mass, calcification, or architectural distortion to sugg est malignancy in either breast. There has been no suspicious interval change. IMPRESSION: 1. No mammographic evidence of malignancy. 2. Recommend routine screening mammography in one year. BI-RADS Category 1: Negative Reviewed, dictated and finalized at location B.
== END 2024-07-04 10:23 | disposition home or self-care (01) ==
LOC: MICIMG 10:23
PROVIDERS: PCP Family Medicine; Visit Provider Family Medicine
DX: Z12.31 Encounter for screening mammogram for malignant neoplasm of breast (principal)
CPT/HCPCS: 77063; 77067

== ENCOUNTER 2025-01-29 10:43 | Outpatient (CLI) | payer MEDICARE, OTHER, SELFPAY ==
--- NOTE | ~2025-01-29 | XR_ITS ---
XR chest 2V 01/29/2025 11:07 Indication: Status post tricuspid valve repair. Procedure: 2 view chest Comparison: 07/18/2021 Findings: There are surgical changes consistent with tricuspid valve repair. Heart size normal. Moder ate size hiatal hernia. No focal air space disease, pulmonary edema, pleural effusion or suspected pn eumothorax. Moderate thoracic spondylosis with accentuated kyphosis. Impression: 1: No acute cardiopulmonary disease. 2: Moderate size hiatal hernia. 3: Surgical changes of tricuspid repair. Reviewed, dictated and finalized at location A. Impression: 1: No acute cardiopulmonary disease. 2: Moderate size hiatal hernia. 3: Surgical changes of tricuspid repair.
--- OUTSIDE RECORDS SUMMARY | 2025-01-29 12:20 | XMS_ITS | Continuity of Care Document ---
Author Organization [employer] [facility] Address [address] [facility] utimar [place] [address] [place] [id number] Phone Care Team Providers Care Monitoring Coordinator Name Role Phone Peter Gutierrez MD, FACS [...] Diagnoses Date Provider Providers Copied on Encounter [facility], [address], [place], [place], [address], [place] tel:[phone] SEC Mike HAMILTON Professional No Information 5 Brenda Green. [address], [address], [place], [place], [address], [place]. tel:[phone] [facility], [address] [facility] [address], [place], [place], [address], [place] tel:[phone] [place] DIlated exam (chief complaint) Corneal transplant statusDrusen (degenerativ e) of macula, bilateralPre sence of intraocular lensPuckerin g of macula, left eye Nov-0 4 Brenda Green. [facility] [employer], [address], [place], [place], [address], [place]. tel:[phone] Referring Provider: Peter Patel, [facility] [employer] [address], [place], [address] . tel:[phone] [address] [facility], [facility] [address], [place], [place], [address], [place] tel:[phone] [place] No Information Nov-0 4 Brenda Green. [facility] [employer], [address], [place], [place], [address], [place]. tel:[phone] [facility], [facility] [address], [place], [place], [address], [place] tel:[phone] SEC [place] Complete Exam (chief complaint) Corneal transplant statusPresen ce of intraocular lensDrusen (degenerativ e) of macula, bilateral Oct-0 9-202 3 Brenda Green. [facility] [employer], [address], [place], [place], [address], [place]. tel:[phone] Referring Provider: Peter Patel, [email or web address], [place], [address] . tel:[phone] Office/outpa tient Visit, Est [employer] [facility], [address], [place], [place], [address], [place] tel:[phone] SEC [place] 6 month Cornea check (chief complaint) Corneal transplant status Apr-0 -202 3 Brenda Green. [facility] [employer], [address], [place], [place], [address], [place]. tel:[phone] Referring Provider: Peter Patel, [facility] [employer] [address], [place], [address] . tel:[phone] [facility], [facility] [address], [place], [place], [address], tel:[phone] SEC [place] N [place] Complete Exam (chief complaint) Corneal transplant statusPresen ce of intraocular lensDrusen (degenerativ e) of macula, bilateral Oct-0 2 Brenda Peter. [facility] [employer], [address], [place], [place], [address], [place]. tel:[phone] Referring Provider: Peter Patel, [facility] [employer] [address], [place], [address] . tel:[phone] Office/outpa tient Visit, Est [facility], [facility] [address], [place], [place], [address], tel:[phone] SEC [place] N [place] cornea check (chief complaint) Corneal transplant status Mar-2 2 Brenda Green. [facility] [employer], [address], [place], [place], [address], [place]. tel:[phone] Referring Provider: Peter Patel, [facility] [employer] [address], [place], [address] . tel:[phone] [email or web address], [facility] [address], [place], [place], [address], [place] tel:[phone] SEC Darnell N Lindbergh Complete Exam (chief complaint) Corneal transplant statusDrusen (degenerativ e) of macula, bilateralPre sence of intraocular lens Sep-1 1 Brenda Green. [facility] [employer], [address], [place], [place], [address], [place]. tel:[phone] Referring Provider: Peter Patel, [facility] [employer] [address], [place], [address] . tel:[phone] Office/outpa tient Visit, Est [facility], [address] [place] [address], [place], [place], [address], tel:[phone] SEC Darnell N Sharyn Cornea evaluation (chief complaint) Corneal transplant status 1 Brenda Green. [facility] [employer], [address], [place], [place], [address], [place]. tel:[phone] Referring Provider: Peter Patel, [facility] [employer] [address], [place], [address] . tel:[phone] [facility], [facility] [place] [address], [place], [place], [address], tel:[phone] SEC Darnell [place] Complete Exam (chief complaint) Corneal transplant statusPresen ce of intraocular lensDrusen (degenerativ e) of macula, bilateralRet inal hemorrhage, right eye 0 Brenda Green. [facility] [employer], [address], [place], [place], [address], [place]. tel:[phone] Referring Provider: Peter Patel, [facility] [employer] [address], [place], [address] . tel:[phone] [facility], [facility] [place] [address], [place], [place], [address], [place] tel:[phone] SEC Darnell Coles 6 month Cornea check (chief complaint) Corneal transplant status 0 Brenda Green. [facility] [employer], [address], [place], [place], [address], [place]. tel:[phone] Referring Provider: Peter Patel, [facility] [employer] [address], [place], [address] . tel:[phone] [employer] [facility], [facility] [place] [address], [place], [place], [address], [place] tel:[phone] SEC Darnell N Lindberg[place] Complete Exam (chief complaint) Corneal transplant statusPresen ce of intraocular lensDrusen (degenerativ e) of macula, bilateral 9 Brenda Green. [facility] [employer], [address], [place], [place], [address], [place]. tel:[phone] Referring Provider: Peter Patel, [facility] [employer] [address], [place], [address] . tel:[phone] [employer] [facility], [facility] [place] [address], [place], [place], [address], [place] tel:[phone] SEC [place] N [place] Graft check (chief complaint) Corneal transplant status 9 Brenda Green. [facility] [employer], [address], [place], [place], [address], [place]. tel:[phone] Referring Provider: Peter Patel, [facility] [employer] [address], [place], [address] . tel:[phone] [employer] [facility], [facility] [place] [address], [place], [place], [address], [place] tel:[phone] SEC Darnell N [place] Complete Exam (chief complaint) Corneal transplant statusPresen ce of intraocular lensDrusen (degenerativ e) of macula, bilateral 8 Brenda Green. [facility] [employer], [address], [place], [place], [address], [place]. tel:[phone] Referring Provider: Peter Patel, [facility] [employer] [address], [place], [address] . tel:[phone] [employer] [facility], [facility] [place] [address], [place], [place], [address], [place] tel:[phone] SEC Darnell N Lindbergh No Information 8 Brenda Peter. [facility] [employer], [address], [place], [place], [address], [place]. tel:[phone] Office/outpa tient Visit, Est [facility], [facility] [place] [employer] [place] [address], [place], [place], [address], [place] tel:[phone] SEC Darnell N [place] Graft ck (chief complaint) Corneal transplant status 7 Brenda Green. [facility] [employer], [address], [place], [place], [address], [place]. tel:[phone] Referring Provider: Peter Patel, [facility] [employer] [address], [place], [address] . tel:[phone] [facility], [facility] [address], [place], [place], [address], [place] tel:[phone] SEC [place] N [place] Complete Exam (chief complaint) Corneal transplant statusPresen ce of intraocular lensDrusen (degenerativ e) of macula, bilateral 7 Brenda Green. [facility] [employer], [address], [place], [place], [address], [place]. tel:[phone] Referring Provider: Peter Patel, [facility] [employer] [address], [place], [address] . tel:[phone] [facility], [facility] [place] [address], [place], [place], [address], [place] tel:[phone] SEC Darnell N Lindbergh Irritation (chief complaint) No Information 7 Brenda Green. [facility] [employer], [address], [place], [place], [address], [place]. tel:[phone] Referring Provider: Peter Patel, [facility] [employer] [address], [place], [address] . tel:[phone] [employer] [facility], [facility] [place] [address], [place], [place], [address], [place] tel:[phone] SEC Darnell N Lindbergh 1 mo YAG PC PO (chief complaint) No Information Oct-1 2-201 6 Kassandra Huerta. [address] [place], [address], . tel:[phone] Referring Provider: Peter Patel, [facility] [employer] [address], [place], [address] . tel:[phone] [facility], [facility] [address], [place], [place], [address], tel:[phone] SEC Pres[place] N Lindbergh 5 month complete PCF check (chief complaint) No Information Sep- 2-201 6 Brenda Green. [facility] [employer], [address], [place], [place], [address], . tel:[phone] Referring Provider: Peter Patel, [facility] [employer] [address], [place], [address] . tel:[phone] Office/outpa tient Visit, [facility], [facility] [address], [place], [place], [address], tel:[phone] SEC Darnell N Lindbergh 6 month graft check (chief complaint) No Information Apr-0 4-201 6 Brenda Green. [facility] [employer], [address], [place], [place], [address], . tel:[phone] Referring Provider: Peter Patel, [facility] [employer] [address], [place], [address] . tel:[phone] Office/outpa tient Visit, [facility], [facility] [address], [place], [place], [address], tel:[phone] SEC [place] N [place] scratchy OD (chief complaint) No Information Oct-0 5-201 5 Brenda Green. [facility] [employer], [address], [place], [place], [address], [place]. tel:[phone] Referring Provider: Peter Patel, [facility] [employer] [address], [place], [address] . tel:[phone] [employer] [facility], [address] [place] [address], [place], [place], [address], [place] tel:[phone] SEC Darnell N Lindbergh No Information 5 Shayne Godfrey. [address] [facility], [address], [place], [place], [address], [place]. tel:[phone] Office/outpa tient Visit, [facility], [facility] [address], [place], [place], [address], [place] tel:[phone] SEC [place] N Lindbergh 6 month graft check (chief complaint) No Information 5 Brenda Green. [facility] [employer], [address], [place], [place], [address], [place]. tel:[phone] Referring Provider: Peter Patel, [facility] [employer] [address], [place], [address] . tel:[phone] [facility], [address], [place], [place], [address], [place] tel:[phone] SEC Darnell N Lindbergh Graft Check (chief complaint) No Information 0 4 Brenda Green. [facility] [employer], [address], [place], [place], [address], [place]. tel:[phone] Referring Provider: Peter Patel, [facility] [employer] [address], [place], [address] . tel:[phone] [employer] [facility], [facility] [address], [place], [place], [address], [place] tel:[phone] SEC Prescott N Lindbergh 3 Week DSAEK PO OS (chief complaint) No Information 4 Brenda Green. [address] [employer], [address], [place], [place], [address], . tel:[phone] Referring Provider: Peter Patel, [facility] [address], [place], [address] . tel:[phone] [employer] [facility], [facility] [place] [employer] [place] [address], [place], [place], [address], tel:[phone] SEC Prescott N [place] F/u exam, postop (chief complaint) No Information 4 Brenda Green. [facility] [employer], [address], [place], [place], [address], [place]. tel:[phone] Referring Provider: Peter Paetl, [facility] [employer] [address], [place], [address] . tel:[phone] [facility], [facility] [place] [address], [place], [address] [place] [address], tel:[phone] SEC Darnell N Lindbergh F/u exam, postop (chief complaint) No Information 4 Brenda Green. [facility] [employer], [address], [place], [place], [address], [place]. tel:[phone] Referring Provider: Peter Patel, [facility] [employer] [address], [place], [address] . tel:[phone] [facility], [facility] [place] [address], [place], [place], [address], [place] tel:[phone] SEC [place] N [place] 1 Day Post Op DSAEK OS (chief complaint) No Information 4 Brenda Green. [address] [employer], [address], [place], [place], [address], [place]. tel:[phone] Referring Provider: Peter Patel, [facility] [employer] [address], [place], [address] . tel:[phone] [facility], [address] [place] [address] [address], [place], [place], [address], [place] tel:[phone] [facility] No Information 4 Brenda Green. [facility] [place] [employer], [address], [place], [place], [address], [place]. tel:[phone] Referring Provider: Peter Patel, [facility] [place] [employer] [address], [place], [address] . tel:[phone] Office/outpa tient Visit, [facility], [address] [place] [address] [address], [place], [place], [address], tel:[phone] SEC [place] N [place] blurry vision (chief complaint) No Information 4 Brenda Green. [facility] [place] [employer], [address], [place], [place], [address], [place]. tel:[phone] Referring Provider: Peter Patel, [facility] [place] [employer] [address], [place], [address] . tel:[phone] Office/outpa tient Visit, [facility], [address] [place], [place] [address] [address], [place], [place], [address], [place] tel:[phone] SEC [place] N [place] irritation (chief complaint) No Information 4 Brenda Green. [facility] [place] [employer], [address], [place], [place], [address], [place]. tel:[phone] Referring Provider: Peter Patel, [facility] [place] [employer] [address], [place], [address] . tel:[phone] Office/outpa tient Visit, [facility] [employer] SolutionsCounts Include [address] [facility], [facility] [place] [address], [place], [place], [address], [place] tel:[phone] SEC [place] N Lindbergh decreased vision (chief complaint) No Information 3 Brenda Green. [facility] [employer], [address], [place], [place], [address], [place]. tel:[phone] Referring Provider: Peter Patel, [facility] [employer] [address], [place], [address] . tel:[phone] [employer] [facility] Montgomery[facility], [facility] [address], [place], [place], [address], tel:[phone] SEC [place] N [place] a comprehensive exam (chief complaint)eye s doing well, without complaint. (chief complaint) No Information 3 Brenda Green. [facility] [employer], [address], [place], [place], [address], [place]. tel:[phone] Referring Provider: Peter Patel, [facility] [employer] [address], [place], [address] . tel:[phone] [facility], [facility] [address], [place], [place], [address], [place] tel:[phone] SEC [place] N [place] blurry vision (chief complaint) No Information 2 Brenda Green. [facility] [employer], [address], [place], [place], [address], [place]. tel:[phone] Referring Provider: Peter Patel, [facility] [employer] [address], [place], [address] . tel:[phone] [employer] [facility], [facility] [place] [address], [place], [place], [address], [place] tel:[phone] SEC [place] N [place] eyes doing well, without complaint. (chief complaint) No Information 1 Brenda Green. [facility] [employer], [address], [place], [place], [address], [place]. tel:[phone] [employer] [facility] [employer] [facility], [facility] [place] [address], [place], [place], [address], [place] tel:[phone] SEC [place] N [place] eyes doing well, without complaint. (chief complaint) No Information 3-201 0 Brenda Peter. [address] [employer], [address], [place], [place], [address], [place]. tel:[phone] Referring Provider: Peter Patel, [facility] [address], [place], [address] . tel:[phone] Office/outpa tient Visit, [facility], [facility] [place] [address], [place], [place], [address], [place] tel:[phone] SEC [place] N [place] No Information 0 7-201 0 Brenda Peter. [facility] [employer], [address], [place], [place], [address], [place]. tel:[phone] Referring Provider: Peter Patel, [facility] [address], [place], [address] . tel:[phone] [facility], [facility] [place] [address], [place], [place], [address], [place] tel:[phone] SEC [place] N [place] No Information 9-200 9 Brendaraul Green. [facility] [employer], [address], [place], [place], [address], [place]. tel:[phone] Referring Provider: Peter Patel, [facility] [address], [place], [address] . tel:[phone] Office/outpa tient Visit, Est [facility], [facility] [place] [address], [place], [place], [address], [place] tel:[phone] SEC [place] N [place] No Information Jan-2 0-200 9 Brenda Peter. [facility] [employer], [address], [place], [place], [address], [place]. tel:[phone] Referring Provider: Peter Patel, [facility] [place] [address] [place] [address], [place], [address] . tel:[phone] Office/outpa tient Visit, Est [facility], [address] [place] [address], [place], [place], [address], [place] [phone] SEC Darnell N Lindbergh No Information Sep-0 200 8 Brenda Peter. [address], [address], [place], [place], [address], [place]. tel:[phone] Referring Provider: Peter Patel, [facility] [address], [place], [address] . tel:[phone] [facility], [address] [place] [address], [place], [place], [address], [place] tel:[phone] SEC Darnell [place] No Information Mar-2 8 Brenda Peter. [facility] [address], [address], [place], [place], [address], [place]. tel:[phone] Referring Provider: Peter Patel, [facility] [address], [place], [address] . tel:[phone] [facility], [address] [place] [address] [address], [place], [place], [address], [place] tel:[phone] SEC [place] N [place] No Information Sep- 7 [employer] . [address] [facility], [address], [place], [place], [address], [place]. tel:[phone] Referring Provider: Rebecca Suazo, [address] [facility], [place], [address]. tel:[phone] [facility], [address] [place] [address], [place], [place], [address], [place] [phone] SEC Darnell N [place] No Information Sep- 7 Brenda Green. [address], [address], [place], [place], [address], [place]. tel:[phone] Referring Provider: Peter [place], [address], [place], [address] . tel:[phone] [facility], [address] [place] [address], [place], [place], [address], tel:[phone] SEC Darnell [place] No Information Dec-0 7 Brenda Green. [address], [address], [place], [place], [address], [place]. tel:[phone] Family History Family Member Type Diagnosis Age At Onset No Information Payers Payer name Insurance type Covered constitution party ID Authorisiah yaoyaima(s) [place] [id number] [facility] [place] [id number] Social History Type Description Quantity Date Captured Comments Sex Female Smoking Status No Information Chief Complaint And Reason For Visit No Information Reason For Referral Reason For Referral No Information Plan Of Treatment Date Type Action Status Patient Education Learning About Retinal Drusen completed [...] visit. 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 Pt states eyes feel [...] PCIOL OU, YAG PC OU, PKP OD 1993, DSAEK OS 2010, and Drusen OU. Patient denies any problems or changes with eyes. Patient using FML qd OU, NO refills needed. Patient using Systane prn OU and taking AREDS BID po. Complete Exam The 78 year old female presents for evaluation of Complete Exam in the right eye and left eye. Hx of PC IOL OD 2001, OS 2006 Yag PC OU 2016, PKP OD 1992, DSAEK OS 2010, and Drusen. Pt using FML OU qd and Systane OU prn. Pt states vision is clear and stable OU at distance and near x 6 mos. Graft check The 78 year old female presents for evaluation of Graft check in the right eye and left eye. Hx of PC IOL OU, Yag PC OU, PKP OD 1993, DSAEK OS 2010, and Drusen. Pt using FML OU qd. Pt states vision is clear and stable OU at distance and near x 6 mos. Complete Exam The 77 year old female presents for evaluation of Complete Exam in the right eye and left eye. Hx of PC IOL OU, Yag PC OU, PKP OD 1993, DSAEK OS 2010, and Drusen. Pt using FML OU qd. Pt states vision is clear and stable OU at distance and near x 6 mos. Graft ck The 77 year old female presents for Graft ck in the right eye and left eye. Hx of PC IOL OU, Yag PC OU, PKP OD 1993, DSAEK OS 2010, and Drusen. Pt using [...] was see by Dr Adrian Gomez at [facility] and was told that OU were doing [...] use discussed Related to Corneal transplant status Follow up - 6 months cornea chec k Impression/Plan - Ex am findings discussed with pt. Pt reports no significant visual complaints. Pt was instructed to return to the office for regular scheduled exams or sooner if vision worsens. Grafts stable OU. Continue same medications. Pt is instructed to contact the office if medications become too expensive. Corneal transplant s tatus - Medication use [...] She can use FML up to QID. Encntr for f/u exam aft trtmt for cond oth than malig neoplm - Post op instructions reviewed and understood by patient Related to Encntr for f/u exam aft trtmt for cond oth than malig neoplm Follow up - RTC [address] Gutierrez as planned Impression/Plan - 1 mth s/p YAG capsulotomy OS. Doing well. IOP well controlled and pt happy with vision. Pt will obtain glasses Rx locally. Continue current drop regimen. Follow up - 1 month po yag with Dr. Cannon, 6 months with LAG graft check Impression/Plan - Di scussed PCF diagnosis with patient this is the cause of the patients visual complaints and YAG PC OS understood for treatment, will proceed with laser treatment today. Pt should follow up in [address] Cannon. Continue same medication regimen. ERX to [facility]. Instructions with still read ou QID so she is given the larger bottle. She will continue using as she is. Return to [facility] in 6 months for graft check Other [...] meds for grafts. Will Erx FML to [facility] with instructions ou QID, pt understands [...] gtts with irritations and vaccinations. [facility] Related to Follow-up examination after surgery [...] return here or with Dr. Ortega in [place] for refraction. All questions discussed at length. [...] to ensure graft seals in the desired position.health information manager drop use discussed. Risks of surgery including [...] graft check. Pt elects Lotemax, Erx to [facility]. Pt considering DSAEK OS will evaluate further [...]
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
== END 2025-01-29 10:44 | disposition home or self-care (01) ==
LOC: ANHIMG 10:51
PROVIDERS: PCP Family Medicine; Visit Provider Internal Medicine Cardiovascular Disease
DX: R00.2 Palpitations (principal); I42.8 Other cardiomyopathies; Z98.890 Other specified postprocedural states; K44.9 Diaphragmatic hernia without obstruction or gangrene
CPT/HCPCS: 71046

== ENCOUNTER 2025-07-03 10:10 | Outpatient (CLI) | payer MEDICARE, OTHER, SELFPAY ==
--- NOTE | ~2025-07-03 | DEXA_ITS ---
Bone Density Report Name: BRAYAN ESCOBAR Age: 84 Sex: Female Ethnicity: White Date of : 1940 Indication: osteopenia; monitoring treatment; height loss; Referring Provider: JC, MALINDA Winchester Study: Bone densitometry was performed. Exam Date: July 03, 2025 Accession number: [id number] Bone Density: Region BMD T-score Z-score Classification AP Spine(L3, L4) 0.909 -1.7 1.3 Osteopenia Femoral Neck (Left) 0.555 -2.6 -0.1 Osteoporosis Total Hip (Left) 0.763 -1.5 0.9 Osteopenia Femoral Neck (Right) 0.566 -2.5 0.0 Osteoporosis Total Hip (Right) 0.758 -1.5 0.8 Osteopenia Total Hip Mean 0.760 -1.5 0.9 Osteopenia World Health Organization criteria for BMD impression classify patients as: Normal (T-score at or above -1.0), Osteopenia (T-score between -1.0 and -2.5), or Osteoporosis (T-score at or below -2.5). 10-year Fracture Risk: FRAX not reported because: Some T-score for Spine Total or Hip Total or Femoral Neck at or below -2.5 Treated for osteoporosis Previous Exams: -- Region Exam Age BMD T-score BMD Change BMD Change Date g/cm2 vs Baseline vs Previous -- AP Spine (L3-L4) 07/03/2025 84 0.909 -1.7 0.0% 0.0% 06/29/2023 82 0.909 -1.7 Total Hip(Left) 07/03/2025 84 0.763 -1.5 -2.3% -2.3% 06/29/2023 82 0.781 -1.3 Total Hip(Right) 07/03/2025 84 0.758 -1.5 -3.1% -3.1% 06/29/2023 82 0.782 -1.3 -- *Denotes significance at 95% confidence level, LSC for AP Spine = 0.022 g/cm2, LSC for Total Hip = 0.027 g/cm2 Clinical Information Provided by Patient: Is being treated for osteoporosis Has used the following medications: Evista (i.e. raloxifene), Fosamax (i.e. alendronate), Vitamin D, Calcium Patient maximum height was 67 Menopause Age: 49 No regular weight bearing exercise Drinks caffeinated beverages Onset of menses at age 10 Number of children 2 Impression: The patient has osteoporosis, based on the Left Femoral Neck T-score. No significant bone loss was observed. Discussion: PATIENT UNDER TREATMENT WITH NO SIGNIFICANT BMD LOSS SINCE LAST EXAM. In an untreated patient, BMD typically declines with age. A lack of decline or gain is usually a sign that treatment is efficacious and fracture risk is reduced. It is important to ask patients whether they are taking their medications and to encourage continued and appropriate compliance with their osteoporosis therapies to reduce fracture risk. It is also important to review their risk factors and encourage appropriate calcium and vitamin D intakes, exercise, fall prevention and other lifestyle measures. Follow-Up: Consider a repeat BMD and Vertebral Fracture Assessment (VFA) exam in 2 years or sooner if medically necessary, to reassess this patient's status. Reported by: RUSSELL on 07/03/2025 1:51:00 PM. Reviewed, dictated and finalized at location A.
== END 2025-07-03 10:11 | disposition home or self-care (01) ==
LOC: MICIMG 10:12
PROVIDERS: PCP Family Medicine; Visit Provider Nurse Practitioner Family
DX: Z78.0 Asymptomatic menopausal state (principal); M85.88 Other specified disorders of bone density and structure, other site; M81.0 Age-related osteoporosis without current pathological fracture; M85.852 Other specified disorders of bone density and structure, left thigh; M85.851 Other specified disorders of bone density and structure, right thigh
CPT/HCPCS: 77080

== ENCOUNTER 2025-09-07 07:36 | Outpatient (CLI) | payer MEDICARE, OTHER, SELFPAY ==
--- OUTSIDE RECORDS SUMMARY | 2024-12-25 09:08 | XMS_ITS | Continuity of Care Document ---
Author Organization [facility] Address [address] [facility] [place] [address] [place] [id number] Phone Care Team Providers Care Floor Assembler Name Role Phone Peter Gutierrez MD, FACS Unavailable Unavailab le Allergies, Adverse Reactions, Alerts Substance Reaction Status Criticality Iodinated Contrast Media Active No Information perflutren Active No Information clindamycin Active No Information Aminoglycosides Active No Informati on tobramycin Active No Information gentamicin Active No Information Medications Medication Instructions Dosage Effective Dates (start - stop) Status Comments FLUOROMETHOLONE 0.1% OPTH SUSP 5ML INSTILL 1 DROP INTO BOTH EYES FOUR TIMES DAILY - Active Systane Ultra 0.4 %-0.3 % eye drops instill 1 drop by ophthalmic route 2 times every day as needed - Active Entresto 24 mg-26 mg tablet take 1 tablet by oral route 2 times every day 1.00 tablet - Active carvedilol 3.125 mg tablet take 1 tablet by oral route 2 times every day with food 3.125 MG - Active Calcium 600 + D(3) 600 mg calcium-200 unit capsule take 1 tablet once daily - Active Vitamin D3 400 unit capsule take 1 tablet once daily - Active omeprazole magnesium 20 mg capsule,delayed release take 1 tablet once daily - Active PreserVision AREDS 2 250 mg-200 unit-40 mg-1 mg capsule take 1 tablet once daily - Active atorvastatin 10 mg tablet take 1 tablet by oral route every day 10 MG - Active multivitamin tablet take 1 tablet by oral route every day with food - Active aspirin 81 mg chewable tablet chew 1 tablet (81MG) by oral route every day 81 MG - Active fluorometholone 0.1 % eye drops,suspension INSTILL 1 DROP INTO BOTH EYES FOUR TIMES DAILY - No Longer Active Procedures Procedure Date No Charge Optomap Fundus Photos 024 No Charge Refraction SCODI, Retina Eye Exam & Treatment Fundus Photography W/ Report No Charge GDX Retina Eye Exam & Treatment Office/outpatient Visit, Est SCODI, Retina No Charge Optomap Fundus Photos 022 Eye Exam & Treatment No Charge Pachymetry Office/outpatient Visit, Est Fundus Photography W/ Report Eye Exam & Treatment Office/outpatient Visit, Est Fundus Photography W/ Report Eye Exam & Treatment Eye Exam Established Pt Fundus Photography W/ Report Eye Exam & Treatment Eye Exam Established Pt Fundus Photography W/ Report Eye Exam & Treatment Office/outpatient Visit, Est Fundus Photography W/ Report Eye Exam & Treatment Post-op Follow-up Visit Post-op Follow-up Visit After Cataract Laser Surgery No Charge Refraction Fundus Photography W/ Report Eye Exam & Treatment No Charge Refraction Fundus Photography W/ Report Office/outpatient Visit, Est Fundus Photography W/ Report Office/outpatient Visit, Est Office/outpatient Visit, Est No Charge Refraction Fundus Photography W/ Report Post-op Follow-up Visit Post-op Follow-up Visit No Charge Orbscan Post-op Follow-up Visit Post-op Follow-up Visit Post-op Follow-up Visit Keratoplasty(Corneal Trans)Endothelial J Office/outpatient Visit, Est Fundus Photography W/ Report Corneal Pachymetry Office/outpatient Visit, Est Fundus Photography W/ Report Corneal Pachymetry Office/outpatient Visit, Est Corneal Topography Corneal Pachymetry Eye Exam & Treatment Corneal Pachymetry Fundus Photography W/ Report Eye Exam & Treatment Certified EMR Corneal Pachymetry Eye Exam & Treatment Eye Exam & Treatment Corneal Pachymetry Office/outpatient Visit, Est Corneal Pachymetry Eye Exam & Treatment Oct--2008 Corneal Pachymetry Oct--2008 Office/outpatient Visit, Est -2008 Corneal Pachymetry -2008 Refraction Jan--2008 Office/outpatient Visit, Est Corneal Pachymetry Eye Exam Established Pt Corneal Pachymetry Miscellaneous Vision Service - Supplies Eye Exam Established Pt Corneal Pachymetry Eye Exam Established Pt Advance Directives Directive Yes / No Effective Date File Name No Information Encounters Encounter Description Practice Location Reason(s) For Visit Diagnoses Date Provider Providers Copied on Encounter [facility], [address] [employer] [facility], [place], [place], [address], [place] tel:[phone] SEC Mike HAMILTON Professional No Information 5 Brenda Green. [address], [address], [place], [place], [address], [place]. tel:[phone] [facility], [address] [address], [place], [place], [address], [place] tel:[phone] [place] DIlated exam (chief complaint) Corneal transplant statusDrusen (degenerative ) of macula, bilateralPres ence of intraocular lensPuckering of macula, left eye Nov-0 8 4 Brenda Green. Formerly named [facility] [employer], [address], [place], [place], [address], [place]. tel:[phone] Referring Provider: Peter Patel, Formerly named [facility] [employer] [address], [place], [address] . tel:[phone] [facility], Formerly named [facility] [employer] [address], [place], [place], [address], [place] tel:[phone] SEC [place] No Information Nov-0 6 4 Brenda Peter. Formerly named [facility] [employer], [address], [place], [place], [address], [place]. tel:[phone] [facility], Formerly named [facility] [employer] [address], [place], [place], [address], [place] tel:[phone] SEC [place] Complete Exam (chief complaint) Corneal transplant statusPresenc e of intraocular lensDrusen (degenerative ) of macula, bilateral Oct-0 9- 3 Brenda Peter. Formerly named [facility] [employer], [address], [place], [place], [address], [place]. tel:[phone] Referring Provider: Peter Patel, Formerly named [facility] [employer] [address], [place], [address] . tel:[phone] Office/outpa tient Visit, Est [facility], Formerly named [facility] [employer] [address], [place], [place], [address], [place] tel:[phone] SEC [place] 6 month Cornea check (chief complaint) Corneal transplant status Apr-0 3-202 3 Brenda Peter. Formerly named [facility] [employer], [address], [place], [place], [address], [place]. tel:[phone] Referring Provider: Peter Patel, Formerly named [facility] [employer] [address], [place], [address] . tel:[phone] [facility], Formerly named [facility] [address], [place], [place], [address], tel:[phone] SEC [place] Complete Exam (chief complaint) Corneal transplant statusPresenc e of intraocular lensDrusen (degenerative ) of macula, bilateral Oct-0 2 Brenda Peter. Formerly named [facility] [employer], [address], [place], [place], [address], [place]. tel:[phone] Referring Provider: Peter Patel, Formerly named [facility] [employer] [address], [place], [address] . tel:[phone] Office/outpa tient Visit, [facility], Formerly named [facility] [employer] [address], [place], [place], [address], tel:[phone] SEC [place] cornea check (chief complaint) Corneal transplant status Mar-2 2 Brenda Green. Formerly named [facility] [employer], [address], [place], [place], [address], [place]. tel:[phone] Referring Provider: Peter Patel, Formerly named [facility] [employer] [address], [place], [address] . tel:[phone] [facility], Formerly named [facility] [address], [place], [place], [address], [place] tel:[phone] SEC [place] Complete Exam (chief complaint) Corneal transplant statusDrusen (degenerative ) of macula, bilateralPres ence of intraocular lens Sep-1 1 Brenda Peter. Formerly named [facility] [employer], [address], [place], [place], [address], [place]. tel:[phone] Referring Provider: Peter Patel, Formerly named [facility] [employer] [address], [place], [address] . tel:[phone] Office/outpa tient Visit, Est [facility], [address] [employer] [address], [place], [place], [address], [place] tel:[phone] SEC [place] Cornea evaluation (chief complaint) Corneal transplant status 1 Brenda Peter. Formerly named [facility] [employer], [address], [place], [place], [address], [place]. tel:[phone] Referring Provider: Peter Patel, [address] [address], [place], [address] . tel:[phone] [facility], Formerly named [facility] [employer] [address], [place], [place], [address], [place] tel:[phone] SEC [place] Complete Exam (chief complaint) Corneal transplant statusPresenc e of intraocular lensDrusen (degenerative ) of macula, bilateralReti nal hemorrhage, right eye 0 Brenda Green. Formerly named [facility] [employer], [address], [place], [place], [address], [place]. tel:[phone] Referring Provider: Peter Patel, [address] [address], [place], [address] . tel:[phone] [facility], [address] [address], [place], [place], [address], [place] tel:[phone] SEC [place] 6 month Cornea check (chief complaint) Corneal transplant status 0 [place] Peter. Formerly named [facility] [employer], [address], [place], [place], [address], [place]. tel:[phone] Referring Provider: Peter Patel, [address] [address], [place], [address] . tel:[phone] [employer] [facility], [address], [place], [place], [address], [place] tel:[phone] SEC [place] Complete Exam (chief complaint) Corneal transplant statusPresenc e of intraocular lensDrusen (degenerative ) of macula, bilateral 9 Brenda Green. Formerly named [facility] [employer], [address], [place], [place], [address], [place]. tel:[phone] Referring Provider: Peter Patel, Formerly named [facility] [employer] [address], [place], [address] . tel:[phone] [facility] [employer] [facility] [facility], Formerly named [facility] [address], [place], [place], [address], [place] tel:[phone] SEC [place] N [place] Graft check (chief complaint) Corneal transplant status 9 Brenda Green. Formerly named [facility] [employer], [address], [place], [place], [address], [place]. tel:[phone] Referring Provider: Peter Patel, Formerly named [facility] [employer] [address], [place], [address] . tel:[phone] [employer] [facility] Hospital[facility], Formerly named [facility] [address], [place], [place], [address], [place] tel:[phone] SEC [place] Complete Exam (chief complaint) Corneal transplant statusPresenc e of intraocular lensDrusen (degenerative ) of macula, bilateral 8 Brenda Green. Formerly named [facility] [employer], [address], [place], [place], [address], [place]. tel:[phone] Referring Provider: Peter Patel, Formerly named [facility] [employer] [address], [place], [address] . tel:[phone] [employer] [facility] HospitalEn[facility], Formerly named [facility] [address], [place], [place], [address], [place] tel:[phone] SEC Darnell Coles No Information 8 Brenda Green. Formerly named [facility] [employer], [address], [place], [place], [address], [place]. tel:[phone] Office/outpa tient Visit, Est [employer] [facility], Formerly named [facility] [address], [place], [place], [address], [place] tel:[phone] SEC [place] Graft ck (chief complaint) Corneal transplant status 7 Brenda Peter. Formerly named [facility] [employer], [address], [place], [place], [address], [place]. tel:[phone] Referring Provider: Peter Patel, [address] [address] [address], [place], [address] . tel:[phone] [employer] [facility], Formerly named [facility] [employer] [address], [place], [place], [address], [place] tel:[phone] SEC [place] Complete Exam (chief complaint) Corneal transplant statusPresenc e of intraocular lensDrusen (degenerative ) of macula, bilateral 7 Brenda Peter. Formerly named [facility] [employer], [address], [place], [place], [address], [place]. tel:[phone] Referring Provider: Peter Patel, Formerly named [facility] [employer] [address], [place], [address] . tel:[phone] [employer] [facility], Formerly named [facility] [address], [place], [place], [address], [place] tel:[phone] SEC [place] Irritation (chief complaint) No Information 7 Brenda Peter. Formerly named [facility] [employer], [address], [place], [place], [address], [place]. tel:[phone] Referring Provider: Peter Patel, Formerly named [facility] [employer] [address], [place], [address] . tel:[phone] [facility] [facility], Formerly named [facility] [address], [place], [place], [address], [place] tel:[phone] SEC [place] 1 mo YAG PC PO (chief complaint) No Information Oct-1 2-201 6 Cannon Deanna. [address] [place], [address], [place]. tel:[phone] Referring Provider: Peter Patel, Formerly named [facility] [employer] [address], [place], [address] . tel:[phone] [facility], [address] [place], [place] [address] [address], [place], [place], [address], [place] tel:[phone] SEC [place] Hanane Coles 5 month complete PCF check (chief complaint) No Information Sep- 2-201 6 Brenda Green. Formerly named [facility] [employer], [address], [place], [place], [address], [place]. tel:[phone] Referring Provider: Peter Patel, Formerly named [facility] [employer] [address], [place], [address] . tel:[phone] Office/outpa tient Visit, Est [facility], Formerly named [facility] [employer] [address], [place], [place], [address], [place] tel:[phone] SEC Darnell Coles 6 month graft check (chief complaint) No Information Apr-0 4- 6 Brenda Green. Formerly named [facility] [employer], [address], [place], [place], [address], [place]. tel:[phone] Referring Provider: Peter Patel, Formerly named [facility] [employer] [address], [place], [address] . tel:[phone] Office/outpa tient Visit, [facility], Formerly named [facility] [address], [place], [place], [address], [place] tel:[phone] SEC Darnell Hanane Coles scratchy OD (chief complaint) No Information Aug-0 5-201 5 Brenda Green. Formerly named [facility] [employer], [address], [place], [place], [address], [place]. tel:[phone] Referring Provider: Peter Patel, Formerly named [facility] [employer] [address], [place], [address] . tel:[phone] [employer] [facility], [address] [address], [place], [place], [address], [place] tel:[phone] SEC [place] No Information 5 Shayne Godfrey. [address] [facility], [address], [place], [place], [address], [place]. tel:[phone] Office/outpa tient Visit, [facility], [address] [address], [place], [place], [address], [place] tel:[phone] SEC [place] 6 month graft check (chief complaint) No Information 5 Brenda Green. Formerly named [facility] [employer], [address], [place], [place], [address], [place]. tel:[phone] Referring Provider: Peter Patel, Formerly named [facility] [employer] [address], [place], [address] . tel:[phone] [employer] [facility], [address] [address], [place], [place], [address], [place] tel:[phone] SEC [place] Graft Check (chief complaint) No Information Aug-0 4 Brenda Green. Formerly named [facility] [employer], [address], [place], [place], [address], [place]. tel:[phone] Referring Provider: Peter Patel, Formerly named [facility] [employer] [address], [place], [address] . tel:[phone] [employer] [facility], Formerly named [facility] [employer] [address], [place], [place], [address], [place] tel:[phone] SEC [place] 3 Week DSAEK PO OS (chief complaint) No Information 4 Brenda Green. Formerly named [facility] [employer], [address], [place], [place], [address], [place]. tel:[phone] Referring Provider: Peter Patel, Formerly named [facility] [employer] [address], [place], [address] . tel:[phone] [facility], [address] [address], [place], [place], [address], [place] [phone] SEC [place] F/u exam, postop (chief complaint) No Information 4 Brenda Green. Formerly named [facility] [employer], [address], [place], [place], [address], [place]. tel:[phone] Referring Provider: Peter Patel, Formerly named [facility] [employer] [address], [place], [address] . tel:[phone] [facility], Formerly named [facility] [employer] [address], [place], [place], [address], [phone] SEC [place] F/u exam, postop (chief complaint) No Information 4 Brenda Green. Formerly named [facility] [employer], [address], [place], [place], [address], [place]. tel:[phone] Referring Provider: Peter Patel, Formerly named [facility] [employer] [address], [place], [address] . tel:[phone] [facility], Formerly named [facility] [employer] [address], [place], [place], [address], [place] tel:[phone] SEC [place] N [place] 1 Day Post Op DSAEK OS (chief complaint) No Information 4 Brenda Green. Formerly named [facility] [employer], [address], [place], [place], [address], [place]. tel:[phone] Referring Provider: Peter Patel, Formerly named [facility] [employer] [address], [place], [address] . tel:[phone] [employer] [facility], Formerly named [facility] [employer] [address], [place], [place], [address], [place] tel:[phone] [facility] [place] No Information 4 Brenda Green. [address] [place] [address], [address], [place], [place], [address], [place]. tel:[phone] Referring Provider: Peter Patel, Formerly named [facility] [address], [place], [address] . tel:[phone] Office/outpa tient Visit, [facility], Formerly named [facility] [address], [place], [place], [address], [place] tel:[phone] SEC [place] No Information 4 Brenda Green. Formerly named [facility] [employer], [address], [place], [place], [address], [place]. tel:[phone] Referring Provider: Peter Patel, Formerly named [facility] [address], [place], [address] . tel:[phone] Office/outpa tient Visit, [facility], Formerly named [facility] [address], [place], [place], [address], [place] tel:[phone] SEC [place] No Information 4 Brenda Green. Formerly named [facility] [employer], [address], [place], [place], [address], [place]. tel:[phone] Referring Provider: Peter Patel, Formerly named [facility] [address], [place], [address] . tel:[phone] Office/outpa tient Visit, [facility], [address] [place] [address] [address], [place], [place], [address], [place] tel:[phone] SEC [place] N [place] No Information 3 Brenda Green. Formerly named [facility] [address], [address], [place], [place], [address], [place]. tel:[phone] Referring Provider: Peter Patel, [address], [place], [address] . tel:[phone] [facility] [facility], [address] [address], [place], [place], [address], tel:[phone] SEC [place] No Information 3 Brenda Green. Formerly named [facility] [address], [address], [place], [place], [address], [place]. tel:[phone] Referring Provider: Peter Patel, Formerly named [facility] [address], [place], [address] . tel:[phone] [employer] [facility], [address] [address], [place], [place], [address], [phone] SEC D[place]ell N [place] No Information 2 Essexraul Green. Formerly named [facility] [address], [address], [place], [place], [address], [place]. tel:[phone] Referring Provider: Peter Patel, Formerly named [facility] [address], [place], [address] . tel:[phone] [facility], [address] [address], [place], [place], [address], [phone] SEC Darnell N Lindbergh No Information 1 Brenda Green. Formerly named [facility] [address], [address], [place], [place], [id number], [place]. tel:[phone] [employer] [facility], [address], [place], [place], [address], tel:[phone] SEC Darnell N Lindbergh No Information 3201 0 Brenda Green. Formerly named [facility] [address], [address], [place], [place], [address], [place]. tel:[phone] Referring Provider: Peter Patel, Formerly named [facility] [address], [place], [address] . tel:[phone] Office/outpa tient Visit, [facility], [address] [place] [address] [address], [place], [place], [address], tel:[phone] SEC [place] N Lind[place] No Information May-0 7-201 0 Brenda Peter. Formerly named [facility] [address], [address], [place], [place], [address], [place]. tel:[phone] Referring Provider: Peter Patel, Formerly named [facility] [address], [place], [address] . tel:[phone] [facility], [address] [place] [address] [address], [place], [place], [address], tel:[phone] SEC [place] N [place] No Information Aug-1 9-200 9 Brenda Peter. Formerly named [facility] [address], [address], [place], [place], [address], [place]. tel:[phone] Referring Provider: Peter Patel, Formerly named [facility] [address], [place], [address] . tel:[phone] Office/outpa tient Visit, [facility], [address] [place] [address] [address], [place], [place], [address], [place] tel:[phone] SEC [place] N [place] No Information Jan-2 0-200 9 Brenda Green. Formerly named [facility] [address], [address], [place], [place], [address], [place]. tel:[phone] Referring Provider: Peter Patel, Formerly named [facility] [address], [place], [address] . tel:[phone] Office/outpa tient Visit, [facility], [address] [place] [address] [address], [place], [place], [address], [place] tel:[phone] SEC Darnell N Lindbergh No Information Sep-0 9-200 8 Brenda Green. Formerly named [facility] [address], [address], [place], [place], [address], . tel:[phone] Referring Provider: Peter Patel, Formerly named [facility] [address], [place], [address] . tel:[phone] [facility], [address] [place], [place] [address], [place], [place], [address], tel:[phone] SEC Darnell N Lindbergh No Information Mar-2 200 8 Brenda Green. Formerly named [facility] [address], [address], [place], [place], [address], [place]. tel:[phone] Referring Provider: Peter Patel, Formerly named [facility] [address], [place], [address] . tel:[phone] [facility], [address] [place], [place] [address] [address], [place], [place], [address], [place] tel:[phone] SEC [place] N Lindberg No Information Sep- 7 [facility] . [address] [facility], [address], [place], [place], [address], . tel:[phone] Referring Provider: Rebecca Suazo, [address] [place] [address], [place], [address]. tel:[phone] [facility], [address] [place], [place] [address], [place], [place], [address], [place] tel:[phone] SEC [place] N [place] No Information Sep- 7 Brenda Green. Formerly named [facility] [address], [address], [place], [place], [address], [place]. tel:[phone] Referring Provider: Peter Patel, Formerly named [facility] [address], [place], [address] . tel:[phone] [facility], [address] [place], [place] [address], [place], [place], [address], [place] tel:[phone] SEC Darnell Coles No Information Dec-0 9-200 7 Brenda Green. [address], [address], [place], [place], [address], [place]. tel:[phone] Family History Family Member Type Diagnosis Age At Onset No Information Payers Payer name Insurance type Covered republican ID Authoriza tiyaima(s) [place] [id number] [id number] Social History Type Description Quantity Date Captured Comments Sex Female Smoking Status No Information Chief Complaint And Reason For Visit No Information Reason For Referral Reason For Referral No Information Plan Of Treatment Date Type Action Status Appointment Keturah Leonard BOOKED Patient Education Learning About Retinal Drusen completed Patient Education Learning About Retinal Drusen completed Patient Education Learning About Retinal Drusen completed Patient Education Learning About Retinal Drusen completed Patient Education Learning About Your Eye s completed Patient Education Learning About Retinal Drusen completed History Of Present Illness Encounter Date Complaint History Of Prese nt Illness DIlated exam The 84 year old patient presents for evaluation of Dilated exam in the right eye and left eye. Pt has h/o Macular drusen ou and DSAEK OS. Pt states her vision at distance and near seems good in both eyes the past year. Pt. states she does not notice any metamorphopsia. Pt is compliant of using her eye vitamins and her steroid drops. Pt did need refills on her drops. Pt states no ocular discomfort. Complete Exam The 83 year old patient presents for evaluation of Complete Exam in the right eye and left eye. Pt reports vision is stable OU x 6 months. Pt states eyes are dry occasionally. Pt using FML QD OU and Systane PRN OU. Pt takes AREDS-2 PO. 6 month Cornea check The 82 year old patient presents for evaluation of 6 month Cornea check in the right eye and left eye. Pt reports vision is stable with current glasses Rx x 6 months. Pt had open heart surgery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
--- NOTE | ~2025-09-07 | MM_ITS ---
EXAMINATION: MM screening brenda BI w shiv HISTORY: Screening TECHNIQUE: Craniocaudal and mediolateral oblique 3-D tomosynthesis images were obtained and synthetic 2-D images were generated. CAD analysis was submitted and interpreted. COMPARISON: Comparison to multiple prior studies sequentially, with oldest reviewed study dated 04/10/2020. BREAST PARENCHYMAL COMPOSITION: Not dense: There are scattered areas of fibroglandular density. FINDINGS: There is no evidence of suspicious mass, calcification, or architectural distortion to suggest malignancy in either breast. There has been no suspicious interval change. IMPRESSION: 1. No mammographic evidence of malignancy. 2. Recommend routine screening mammography in one year. BI-RADS Category 1: Negative Reviewed, dictated and finalized at location O. OR SOFTWARE DEVELOPER
--- OUTSIDE RECORDS SUMMARY | 2025-09-07 07:41 | XMS_ITS | Clinical Summary ---
Author Organization [facility] Address [address] [place] [address] Care Team Providers Care Furnace Filler Name Role Phone Rian Bautista NP Unavailable Shadi Ace MD Primary Care Provider Allergies Active Allergy Reactions Criticality Noted Date Comments Clindamycin Iodinated Contrast Media Rash Medium 07/23/2021 Medications aspirin 81 mg enteric coated tablet Take 1 tablet (81 mg total) by mouth daily 1 Active cholecalciferol (VITAMIN D-3) 1,000 unit Take 1 tablet/capsul e (1,000 Units total) by mouth daily Active vit C,R-Te-eljlt-lute in-zeaxan 250-90-40-1 mg capsule Take 1 capsule by mouth 2 (two) times a day Active calcium carbonate (CALCIUM 600 ORAL) Take 1 capsule by mouth daily Active acetaminophen 500 mg capsuleIndication s:Pain Take 2 capsules (1,000 mg total) by mouth every 6 (six) hours as needed for pain 2 Active multivit mccvcjuo-llon-IQ- calcium (THERA-M) 9 mg iron-400 mcg tabletIndications :Vitamin Deficiency Prevention Take 1 tablet by mouth daily Active fluorometholone (FML) 0.1 % ophthalmic suspension INSTILL 1 DROP INTO BOTH EYES FOUR TIMES DAILY 3 Active rbyxcevqsqe-Y3-Yh swellia serr 1,500-400-100 mg-unit-mg tablet Take by mouth Active atorvastatin (LIPITOR) 10 mg tablet Take 1 tablet (10 mg total) by mouth daily 90 tablet 1 5 Active omeprazole (PriLOSEC) 20 mg capsule TAKE 1 CAPSULE(20 MG) BY MOUTH TWICE DAILY 180 capsule 1 5 Active Entresto 24-26 mg tabletIndications :NICM (nonischemic cardiomyopathy) (HCC) TAKE 1 TABLET BY MOUTH TWICE DAILY 180 tablet 1 5 Active carvediloL (COREG) 6.25 mg tabletIndications :NICM (nonischemic cardiomyopathy) (HCC) TAKE 1 TABLET(6.25 MG) BY MOUTH TWICE DAILY WITH MEALS 180 tablet 1 5 Active alendronate (FOSAMAX) 70 mg tabletIndications :Post-Menopausal Osteoporosis Take 1 tablet (70 mg total) by mouth every 7 days Take in the morning with a full glass of water, on an empty stomach, and do not take anything else by mouth or lie down for the next 30 min. 12 tablet 3 5 07/12/20 26 Active Active Problems Problem Noted Date Diagnosed Date Palpitations 01/29/2025 Pulmonary hypertension 01/29/2025 NICM (nonischemic cardiomyopathy) 01/21/2024 Assessment & Plan (08/23/2024 11:09 AM CDT): Diastolic dysfunciton on echo 07/2024, improved. EF 47%. Managed by cardiology. On coreg 6.25mg bid, entresto bid. Encounter for Medicare annual wellness exam 08/01 Assessment & Plan (08/23/2024 11:27 AM CDT): -Recommended: Healthy diet. Avoiding junk food/fast food. -30 minutes of exercise most days of the week. Increase to 45 minutes for weight loss. Health Maintenance reviewed - utd. -Influenza vaccine every year Recommend: - Topic Date Due DTaP/Tdap/Td Vaccine (2 - Tdap) 09/18/2020 -F/u in 1 year for Annual PE or sooner if needed Assessment & Plan (08/17/2023 9:57 AM CDT): - patient full independent- cooks and prepares own foods. - AOx4 - plan a follow up exangelo in 1 year Status post mitral valve repair 09/23/2022 Status post tricuspid valve repair 09/23/2022 History of PSVT (paroxysmal supraventricular tac hycardia) 05/26/2022 History of pulmonary hypertension 05/26/2022 Assessment & Plan (08/23/2024 11:24 AM CDT): Improved since having valve replacements. No further problems. Last echo was much improved. Still sees cardiology. Thoracic spondylosis 07/23/2021 Assessment & Plan (07/23/2021 10:35 AM CDT): This may be contributing to right side back pain. Transition to OTC Aleve PRN, Tylenol PRN. Thrombocytopenia 07/11/2020 Assessment & Plan (03/14/2025 12:28 PM CDT): Continuing to monitor. Repeat cbc today Assessment & Plan (08/23/2024 11:27 AM CDT): Stable/ improved. Platelets 145. Discussed with patient. Not concerning at this time. Will continue to monitor Assessment & Plan (09/09/2021 1:28 PM FRONT DESK SPECIALIST): Minor on recent labs. Has been noted in the past. Continue periodic monitoring. Assessment & Plan (10/16/2020 11:30 AM FRONT DESK SPECIALIST): Resolved on recent labs. Will periodically monitor. Assessment & Plan (07/17/2020 10:28 AM CDT): Mild. Incidentally noted on recent labs. Benign exam. Repeat CBC in the near future. Osteoporosis 04/21/2016 Assessment & Plan (09/09/2021 1:22 PM FRONT DESK SPECIALIST): Started Fosamax 04/21/16 Completed Fosamax in 04/2021. Up to date on DEXA Assessment & Plan (07/17/2020 10:30 AM CDT): Started Fosamax 04/21/16 Continue current regimen. Assessment & Plan (03/02/2019 10:44 AM CDT): Started Fosamax 04/21/16. Continue current regimen. Dyslipidemia 04/09/2016 Assessment & Plan (08/23/2024 11:28 AM CDT): Lipid abnormalities are stable. Reviewed recent labs with patient. Pharmacotherapy as ordered. Continue atorvastatin Lipids will be reassessed in 6 months. Assessment & Plan (02/13/2023 2:41 PM CDT): LDL 69 mg/dl, HDL 75 mg/dl Triglycerides are in range Lipids are controlled Continuing atovastatin Assessment & Plan (02/05/2022 9:11 PM CDT): Will continue with Lipitor 10 mg 1 daily at HS Follow low-fat diet, again stressing 6 small meals an adequate fluids Will check further labs involving the dyslipidemia and work for work. Assessment & Plan (09/09/2021 1:12 PM FRONT DESK SPECIALIST): I spent 15 minutes counseling her on CV risk reduction. Our discussion included the followin. Healthy eating habits, including low carbohydrate diet, low starch vegetables. We discussed intermittent fasting and paleo diets. 2. Regular aerobic exercise plan, which can include walking, jogging, treadmill, rowing, swimming biking. I recommend targeting the equivalent of 20K steps daily most days of the week. 3. Optimize BP control. Continue current regimen. Assessment & Plan (07/17/2020 10:25 AM CDT): I spent 15 minutes counseling her on CV risk reduction. Our discussion included the followin. Healthy eating habits, including low carbohydrate diet, low starch vegetables. We discussed intermittent fasting and paleo diets. 2. Regular aerobic exercise plan, which can include walking, jogging, treadmill, rowing, swimming biking. I recommend targeting the equivalent of 20K steps daily most days of the week. 3. Optimize BP control. 4. Assessment of ASCVD risk and recommendations how to mitigate this risk.discussion was consistent with the 5 A s approach. Continue current regimen. Assessment & Plan (03/02/2019 10:36 AM CDT): I spent 15 minutes counseling her on CV risk reduction. Our discussion included the followin. Healthy eating habits, including low carbohydrate diet, low starch vegetables. We discussed intermittent fasting and paleo diets. 2. Regular aerobic exercise plan, which can include walking, jogging, treadmill, rowing, swimming biking. I recommend targeting the equivalent of 20K steps daily most days of the week. 3. Optimize BP control. 4. Taking aspirin. 5. Assessment of ASCVD risk and recommendations how to mitigate this risk.discussion was consistent with the 5 A s approach. Continue current regimen. Impaired fasting glucose 02/25/2016 Overview (03/02/2019): Assessment & Plan (09/09/2021 1:29 PM FRONT DESK SPECIALIST): Impaired Fasting Glucose is improving with lifestyle modifications Counseled on regular aerobic exercise, including walkig, jogging, targeting 10K- 20K step equivalent daily., Counseled on low carbohydrate diet and Counseled on intermittent fasting diet. Follow up at the next regular appointment Assessment & Plan (07/17/2020 10:47 AM CDT): Impaired Fasting Glucose is stable Counseled on regular aerobic exercise, including walkig, jogging, targeting 10K- 20K step equivalent daily., Counseled on low carbohydrate diet and Counseled on intermittent fasting diet. Follow up at the next regular appointment Assessment & Plan (03/02/2019 10:36 AM CDT): Normal FPG. Counseled on exercise, diet. Vitamin D deficiency 08/21/2015 Overview (07/17/2020): Assessment & Plan (01/18/2022 4:23 PM CDT): Continue with Vit D as ordered. Will do lab work in regards to vir. D and other things that have been monitored in the past. Will review last lab work for evaluation of what needs to be dome. Assessment & Plan (09/09/2021 1:29 PM FRONT DESK SPECIALIST): Controlled. Continue current regimen. Assessment & Plan (07/17/2020 10:29 AM CDT): Controlled. Continue current regimen. GERD (gastroesophageal reflux disease) 5 Overview (03/02/2019): Assessment & Plan (02/13/2023 2:42 PM CDT): Symptoms are controlled Continuing omeprazole Assessment & Plan (02/05/2022 9:14 PM CDT): At this time will continue with her Prilosec 20 mg 1 2 times a day. Six small meals, meals on the aws architect side with foods, and adequate fluid. Patient states has had no problems with her stomach. Assessment & Plan (01/18/2022 4:37 PM CDT): Continue with medication as ordered. Food diary for the last 24 hours show that she dos eat balanced and get adequate fluid. Note is not haivng any problems with GERD at this time. Continue watching foods that can give you a problem with stomach. Assessment & Plan (09/09/2021 1:30 PM FRONT DESK SPECIALIST): Controlled. No red flag SX. Continue current regimen. Assessment & Plan (07/17/2020 10:27 AM CDT): Controlled. No red flag SX. Continue current regimen. Assessment & Plan (03/02/2019 10:36 AM CDT): Controlled. No red flag SX. Continue current regimen. Hypertension with heart disease 05/08/2015 Assessment & Plan (08/23/2024 11:28 AM CDT): Stable/ Improved. Blood pressure is adequately controlled on entresto, carvedilol . We will not make any medication changes today. Will have her follow-up in 6 months for continued monitoring and management Assessment & Plan (02/13/2023 2:40 PM CDT): BP is controlled Continuing carvedilol Renal function is acceptable Assessment & Plan (04/18/2022 12:56 PM CDT): Reviewed echo Cardiology visit upcoming Will continue current regimen. BP is mildly elevated today, but likely more 'white coat' influence Assessment & Plan (02/13/2022 10:44 PM CDT): Note blood pressure today is 110/58. States has been a little higher than at home note blood pressure was recheck after 15 minutes noting she was 122/68. Suggested continue to monitor blood pressure daily basis at alternate time. Also suggest keeping a diary of when she has the shortness of breath and if it is associated with abnormal heart rate or beats. Assessment & Plan (02/25/2022 9:52 PM CDT): Will continue with Prinivil 20 mg 1 daily. Baby aspirin 81 mg 1 at HS No allergies o GI problems at this time. Talked with her in regards to eating 6 small meals, adequate fluids Monitor BP at home on a daily basis or 3 times a week at alternate times. Talked with her about talking with her family in regards to getting a Life Line for safety Lab done today. Assessment & Plan (01/18/2022 4:20 PM CDT): Blood [ressure 122/72. States that is about where it runs. . Note takes medication on a regular basis. Continue with medication as ordered. Watch diet for sodium Continue with some type of exercise. Chair aerobics , water aerobics, etc. Monitor blood pressure at home. Assessment & Plan (09/09/2021 1:29 PM FRONT DESK SPECIALIST): Hypertension is stable Continue current treatment regimen. Regular aerobic exercise. Continue current medications. Blood pressure will be reassessed at the next regular appointment. Assessment & Plan (10/16/2020 11:34 AM FRONT DESK SPECIALIST): Hypertension is improving with treatment Continue current treatment regimen. Regular aerobic exercise. Continue current medications. Ambulatory blood pressure monitoring. Blood pressure will be reassessed at the next regular appointment. Assessment & Plan (07/17/2020 10:46 AM CDT): Hypertension is mild Regular aerobic exercise. Medication changes per orders. Ambulatory blood pressure monitoring. Blood pressure will be reassessed in 3 months. Increase dose carvedilol. Assessment & Plan (03/02/2019 10:35 AM CDT): Hypertension is controlled. Continue current treatment regimen. Regular aerobic exercise. Continue current medications. Blood pressure will be reassessed at the next regular appointment. Assessment & Plan (09/01/2018 10:39 AM CDT): Hypertension is improving with treatment. Continue current treatment regimen. Regular aerobic exercise. Continue current medications. Blood pressure will be reassessed at the next regular appointment. Fibrocystic breast changes 10/07/2010 Degeneration of intervertebral disc of cervical region 10/07/2010 Assessment & Plan (01/18/2022 4:39 PM CDT): Continue with medications as ordered. Note eat balanced. Continue with exercises on long bones Drink plenty of fluids. Family history of colon cancer 10/07/2010 Resolved Problems Problem Noted Date Diagnosed Date Resolved Date Non-recurrent acute serous o titis media of left ear 05/02/2024 08/23/2024 Assessment & Plan (05/02/2024 2:59 PM CDT): She may be fighting off an upper respiratory infection with fluid in her left ear and a few shotty lymph nodes on the left side. I told her she can take Zyrtec [id number] or Benadryl. Can try an ooid-afk-kadpciu nasal spray. Can monitor for resolving symptoms Acute cystitis without hematuria 05/01/2024 08/23/2024 Assessment & Plan (05/02/2024 7:32 AM CDT): HPI: C/o'd of frequency and took a home test which was faintly positive. Plan: Will order UA Urine frequency 05/01/2024 08/23/2024 Aftercare following surgery of the circulatory system 09/23/2022 08/23/2024 Severe mitral regurgitation 08/18/2022 09/23/2022 Mitral valve prolapse 05/26/20222023 Shortness of breath 05/26/2022 08/23/20 Non-rheumatic tricuspid valve insufficiency 05/26/2022 08/23/2024 Irregular heart beat 02/13/2022 024 Assessment & Plan (02/25/2022 9:47 PM CDT): Note irregular heart beat , apical and radial rates are equal at this time. No change in heart rate, rhythm is the same. Denies chest pain or shortness of breat at this time. Assessment & Plan (02/13/2022 10:41 PM CDT): Note heart rate today has improved is now 67 last visit had been lower. S tolerated the change in the carvedilol without any problems, states she is feeling better. Note apical and radial pulses are equal, so the beach she is having a probably PACs, or junctionals. She denies any chest. No diaphoresis, nausea or vomiting. Does have some irregular rhythm, and note shortness of breath is associated with them. Dyspnea on exertion 02/13/2022 08/23/20 24 Assessment & Plan (02/25/2022 10:05 PM CDT): States she has noted that the shortness of breath occurs when she does do pushing activities. ,But states does that she does gain her breath when she rests for about 10 minutes. Denies any chest pain or diaphoresis at that time. 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 Requests that she not push people in wheeled or anything that is heavy. Also when she feels that way is to sit down and rest and see if it resolves. Noted at this time will get a 2D echo cardiogram with color flow, and 48 hour Holter monitor . Set up an appointment with Dr. Webster. Make sure you tell staff she is a new patient. If this would continue to be a problem and does not. She is to go to the ER Bradycardia by electrocardiogram 02/03/2022 08/23/2024 Assessment & Plan (02/13/2022 10:49 PM CDT): Bradycardic rhythm she has at the last visit has resolved, heart rate is now in the high 60's and lower 70's. Voices no complaints of this rate. Assessment & Plan (02/05/2022 9:25 PM CDT): EKG was done today found to be bradycardic rate with bundle-branch occasional ectopic noted. At this time patient denies any chest pain, pressure, shortness of breath. Decreased Coreg 12.5bid to 6.25 b.i.d.. Did review with patient how to take her pulse like to check pulse before she takes any of the Coreg. Does demonstrate that she can take her radial pulse. Eye irritation 11/11/2016 08/23/2024 Adenomatous polyp of colon 05/08/2015 1 Non-rheumatic mitral regurgitation 10/07/2010 08/23/2024 Overview (05/13/2018): Description: Mild on ECHO 02/21/13 Assessment & Plan (02/05/2022 9:07 PM CDT): Talked with her in regards to doing a 2D echo cardiogram with color flow. Will set this up at Dr. Webster is office. Also would like to get her set up with Dr. Webster as new patient. Check to see if she was allergic to aspirin. Requests that she taking 81 mg baby aspirin at bedtime. Also suggest not doing any strenuous activity into we get this checked out more. Assessment & Plan (01/18/2022 4:14 PM CDT): Talked with her about [facility], has a nurse manager. Who she sees on a regular basis. No change in mitral valve. Continue with medications as ordered. Encounters Date Type Department Care Team Description 08/20/2025 Results Follow-Up [facility] Cardiology [facility] [address] [place] [address] Estella Webster MD Transthoracic Echo (TTE) Complete W Doppler/CF 08/07/2025 9:15 AM CDT Ancillary Procedure [facility] Cardiology [address] [place] [id number] NICM (nonischemic cardiomyopathy) (HCC); Status post mitral valve repair; Status post tricuspid valve repair; Pulmonary hypertension (HCC) 07/20/2025 10:15 AM CDT Office Visit [facility] Cardiology [address] [place] [phone] Estella Webster MD NICM (nonischemic cardiomyopathy) (HCC) (Primary Dx); Status post mitral valve repair; Status post tricuspid valve repair; Pulmonary hypertension (HCC); Hypertension with heart disease; Dyslipidemia 07/13/2025 Results Follow-Up [facility] at [address] [phone] Latonya Howard NP Dexa Axial Skeleton Bone Density 1 or 2 Site 07/09/2025 Orders Only [facility] at [address] [phone] Latonya Howard NP Post-menopausal 07/09/2025 Orders Only [facility] at [address] [phone] Latonya Howard NP Dyslipidemia (Primary Dx); Hypertension with heart disease; Impaired fasting glucose 07/06/2025 Telephone [facility] at [address] [phone] Latonya Howard NP Additional Services Or Orders from Last 3 Months Immunizations Immunization Administration Dates Next Due DT 09/18/2010 Influenza, Quadrivalent, Hig h Dose, Preservative Free, Intrr 08/17/2023,08/08/2022 Influenza, Quadrivalent, Rec ombinant, Egg Free, Preservative Free, Intramuscular 07/23/2021,07/17/2020 Influenza, Quadrivalent, Spl it, Preservative Free, Intramuscular 08/01/2018 Influenza, Trivalent, Adjuva nted, Intramuscular 08/24/2019 Influenza, Trivalent, Preser vative Free, Intramuscular 08/01/2017,09/01/2016,09/01/2015 Influenza, Unspecified 08/16/2024,08/01/2022 Moderna SARS-CoV-2 Monovalen t Vaccination (12+ YRS) 02/15/2022,09/04/2021,01/17/2021,12/20 Pneumococcal Conjugate PCV 13 09/01/2015, 015 Pneumococcal Polysaccharide PPV23 10/07/2010 RSV IGIM 08/16/2024 ZOSTER LIVE 10/06/2012,11/01/2011 ZOSTER Recombinant 04/07/2019,02/01/2019 Surgical History Surgery Date Site/Laterality Comments NE KERATOPLASTY ANTERIOR LAMELLAR Cornea Transplant - (Added by TW Conv) MITRAL VALVE REPAIR 08/18/2022 mitral valve repair, tricuspid valve repair via mini thoracotomy Medical History Medical History Date Comments Personal history of other di seases of the nervous system and sense organs History of migrain e with aura - (Added by TW Conv) Other specified disorders of bone density and structure, unspecified site Osteopenia - Previously [place] w raquel Peralta for 10 years. (Added by TW Conv) Hyperkalemia Hyperkalemia - ( Added by TW Conv) Heart valve disease mitral regur gitation, tricuspid regurg. Adenomatous polyp of colon 05/08/2015 Non-rheumatic mitral regurgitation 10/07/2010 Description: Mild on ECHO 02/21/13 Non-rheumatic tricuspid valv e insufficiency 05/26/2022 Family History Medical History Relation Name Comments Colon cancer Father Breast cancer Maternal Grandmother Breast cancer Mother Breast cancer Mother's Sister Relation Name Status Comments Father Maternal Grandmother Mother Mother's Sister Social History Tobacco Use Types Packs/Day Years Used Date Smoking Tobacco: Never Smokeless Tobacco: Never Tobacco Cessation:Counseling Given: Not Answered Alcohol Use Standard Drinks/Week Comments Yes 0 (1 standard drink = 0.6 oz pur e alcohol) monthly or less Social Connection and Isolation Panel Answer Date Recorded In a typical week, how many times do you talk on the phone with family, friends, or neighbors? More than three times a week 08/31/2022 How often do you get togethe r with friends or relatives? More than three times a week 08/31/2022 How often do you attend chur ch or holiness services? 1 to 4 times per year 08/31/2022 Do you belong to any clubs o r organizations such as judaism groups, unions, fraternal or athletic groups, or school groups? Yes 08/31/2022 How often do you attend meet ings of the clubs or organizations you belong to? 1 to 4 times per year 08/31/2022 Are you , , di vorced, , never , or living with a partner? 08/31/2022 AUDIT-C Answer Date Recorded Q1: How often do you have a drink containing alcohol? Never 08/18/2022 Q2: How many drinks containi ng alcohol do you have on a typical day when you are drinking? Patient does not drink Q3: How often do you have si x or more drinks on one occasion? Never 08/18/2022 Overall Financial Resource Strain (CARDIA) Answe r Date Recorded How hard is it for you to pa y for the very basics like food, housing, medical care, and heating? Not very hard 08/31/2022 PHQ-2 Answer Date Recorded PHQ-2 Total Score (If total score is 3 or more points, staff should administer the PHQ-9) 0 03/14/2025 Hunger Vital Sign Answer Date Recorded Within the past 12 months, y ou worried that your food would run out before you got the money to buy more. Never true 08/31/20 22 Within the past 12 months, t he food you bought just didn't last and you didn't have money to get more. Never true 08/31/2022 PRAPARE - Transportation Answer Date Re corded In the past 12 months, has l ack of transportation kept you from medical appointments or from getting medications? No 08/03 In the past 12 months, has l ack of transportation kept you from meetings, work, or from getting things needed for daily living? No 08/31/2022 Housing Stability Vital Sign Answer Adi e Recorded In the last 12 months, was t here a time when you were not able to pay the mortgage or rent on time? No 08/31/2022 In the last 12 months, how many places have you lived? 1 08/31/2022 In the last 12 months, was t here a time when you did not have a steady place to sleep or slept in a skilled nursing (including now)? No 08/31/2022 Comments No Sex and Gender Information Value Date Recorded Sex Assigned at Not on file Legal Sex Female 3:22 AM FRONT DESK SPECIALIST Gender Identity Not on file Sexual Orientation Not on file Last Filed Vital Signs Vital Sign Reading Time Taken Comments Blood Pressure 112/67 07/20/2025 10:05 AM CDT Pulse 77 07/20/2025 10:05 AM CDT Temperature 36.3 C (97.3 F) 03/14/2025 10:51 AM CDT Respiratory Rate 18 03/14/2025 10:5 1 AM CDT Oxygen Saturation 98% 07/20/2025 10: 05 AM CDT Inhaled Oxygen Concentration - - Weight 61.1 kg (134 lb 12.8 oz) 025 10:05 AM CDT Height 162.6 cm (5' 4) 07/20/2025 10:0 5 AM CDT Body Mass Index 23.14 07/20/2025 10:05 AM CDT Plan of Treatment Scheduled Procedures Name Priority Associated Diagnoses Date/Ti me COLONOSCOPY Adenomatous polyp of colon, unspecified part of colon Family history of colon cancer Health Maintenance Due Date Last Done Comments Hepatitis B Screening 1958 DTaP/Tdap/Td Vaccine (2 - Tdap) 09/18/2020 0 Covid-19 Vaccine (2024-2 6 season) 2025 09/02/2024, 07/27/2023, 10/09/2022, Additional history exists Influenza Vaccine (#1) 2025 , 08/15/2024, 08/17/2023, Additional history exists Breast Cancer Screening-Mammogram 07/04/2025 07/04/2024, 06/29/2023, 05/05/2022, Additional history exists Fall Risk Assessment 08/23/2025 08/23/2024, 05/01/2024, 08/17/2023, Additional history exists Well Visit 65+ 08/23/2025 08/23/2024, 08/01, 09/09/2021, Additional history exists Depression Screening 03/14/2026 03/14/2025, 08/23/2024, 05/01/2024, Additional history exists Osteoporosis Screening-Bone Density Scan 07/03/2027 07/03/2025, 06/29/2023, 06/29/2023, Additional history exists Colon Cancer Screening-Colonoscopy 07/06/2033 07/06/2023, 01/23/2015, 10/31/2013 Pneumococcal vaccine 65+ Completed 015, 08/20/2015, 10/07/2010 Zoster Vaccine Completed 04/07/2019, 12/2018, 10/06/2012, Additional history exists Colon Cancer Screening-CT Colonography Discontinued 07/06/2023, 01/23/2015, 10/31/2013 Colon Cancer Screening-DNA Stool Discontinued 07/06/2023, 01/23/2015, 10/31/2013 Colon Cancer Screening-FIT Discontinued 07/06, 01/23/2015, 10/31/2013 Colon Cancer Screening-Sigmoidoscopy Discontinued 07/06/2023, 01/23/2015, 10/31/2013 Goals Goal Patient Goal Type Associated Problems Recent Progress Patient-Stated? 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 - Address any barriers for keeping scheduled appointment. - Coordinate with patient/caregiver(s) to ensure patient is able to keep scheduled appointment. - Emphasize importance of keeping scheduled appointments. - Identify and discuss questions for next provider visit. - Follow up with patient after scheduled appointment(s) to review any new orders or changes made to medication regimen. Medical Devices Implanted Type Area Director Print Device Identifier Shelf Expiration Date Model / Serial / Lot [employer]ek[employer] [place]-[facility] [facility] Physio Ii 36mm Wise Mitral Ring Annuloplasty [id number] - [id number] - [id number] Implanted:Qty: 1 on 08/18/2022 by Petey Curiel MD at [facility] Prosthetic Valve N/A: Mitral Valve [employer] 11/12/2024 [id number] / [id number] / N/A [employer] Contour 3d 30mm 33mm Tricuspid Ring Annuloplasty Titanium [id number] - [id number] - [id number] Implanted:Qty: 1 on 08/18/2022 by Petey Curiel MD at [facility] N/A: Tricuspid Valve [employer] 08/19/2026 [id number] / [id number] / N/A Procedures Procedure Name Priority Date/Time Associated Diagnosis Comments TRANSTHORACIC ECHO (TTE) COMPLETE W DOPPLER/CF WO CONTRAST Routine 08/07/2025 10:33 AM CDT NICM (nonischemic cardiomyopathy) (HCC) 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 Pulmonary hypertension (HCC) DEXA AXIAL SKELETON BONE DENSITY 1 OR MORE SITES Schedule Routine, Read Routine (OP Routine) 07/03/2025 11:46 AM CDT Post-menopausal HM MAMMOGRAPHY Routine 07/04/2024 COLONOSCOPY Routine 07/06/2023 from Last 3 Months or Most Recently Relevant to Health Maintenance Results * TRANSTHORACIC ECHO (TTE) COMPLETE W DOPPLER/CF WO CONTRAST (08/07/2025 10:33 AM CDT) Estimated EF 55-60 % CONS SCIMAGE EF Mod BP 51 % CONS SCIMAGE Anatomical Region Laterality Modality Ultrasound 08/07/2025 9:30 AM CDT Narrative 08/07/2025 12:08 PM CDT [facility] Medical [facility] Cardiology [address] [facility] [facility] [address], [place] [address] [address] [facility] [address], [place] [address] P:[phone] P:[phone] Echocardiographic Report Patient Name: KETURAH ESCOBAR Jarett : 1940 Study Date: 08/07/2025 9:30:28 AM Sex: F Drivematic Machine Operator: Dina Harrington)([place]), [facility] Location: [facility] Provider: ESTELLA WEBSTER Height(Cm): 163 BSA: 1.66 Weight(Kg): 60.8 Heart Rate: 69 BP: 112 / 67 Quality: Good Order Provider: ESTELLA WEBSTER PROCEDURES: Echocardiographic Report: Transthoracic echocardiogram with complete 2D, M-Mode, and color Doppler examination. With Strain Analysis. INDICATIONS: I42.8 Other cardiomyopathies, Z98.890 Other specified postprocedural states, Z98.890 Other specified postprocedural states, and I27.20 Pulmonary hypertension, unspecified. MEASUREMENTS: 2D/MM Value Range Doppler Value Range EF Mod BP 51 % [ 54 - 74 ] CARLOS Vmax 2.15 cm2 [ 2.00 - 4.00 ] Estimated EF 55-60 % AV Mean PG 3 mmHg LV GLS -10.36 % AV Peak Meek 1.17 m/s [ 1.00 - 1.70 ] LVIDd 2D 3.93 cm [ 3.80 - 5.20 ] AV Peak PG 6 mmHg LVIDs 2D 2.50 cm [ 2.20 - 3.50 ] AV VTI 23.38 cm LVPWd 2D 1.08 cm [ 0.60 - 0.90 ] LVOT Diam 1.95 cm [ 1.70 - 2.10 ] IVSd 2D 1.08 cm [ 0.60 - 0.90 ] LVOT Peak Meek 0.84 m/s [ 0.70 - 1.10 ] AoR Diam 2D 3.10 cm [ 2.70 - 3.70 ] LVOT VTI 16.79 cm LA Volume 76.22 ml [ 22.00 - 52.00 ] PV Peak Meek 1.12 m/s [ 0.40 - 0.80 ] LA Volume Index 46 cc/m2 [ 16 - 28 ] TR Peak Meek 2.80 m/s [ 1.00 - 2.80 ] RA Volume 29.39 ml TR Peak PG 31 mmHg RV S` 8.67 mmHg Tapse 2.54 cm [ 1.71 - 5.00 ] 2D/MM Value Range Doppler Value Range - FINDINGS: Interpretation Site: Exam was interpreted at [facility]. Left Ventricle: Normal left ventricular systolic function. No focal wall motion abnormalities. Normal left ventricular size. Mild concentric left ventricular hypertrophy. Impaired diastolic relaxation Grade I. Ejection fraction is measured at 51 %. Ejection Fraction is visually estimated to be 55-60 %. Global Longitudinal Strain is -10 %. GLS is abnormal. Right Ventricle: Normal right ventricular size. Normal right ventricular systolic function. Left Atrium: There is severe enlargement of left atrium. Right Atrium: There is mild enlargement of right atrium. Atrial Septum: Normal atrial septum. Mitral Valve: Mitral valve leaflets appear mildly thickened. Trivial regurgitation of the mitral valve. There is no hemodynamically significant mitral stenosis by Doppler. Aortic Valve: No evidence of hemodynamically significant aortic stenosis by Doppler. Aortic cusps appear mildly sclerotic. Trileaflet aortic valve. Mild to moderate aortic valve regurgitation. Tricuspid Valve: Mild pulmonary hypertension based on right ventricular systolic pressure. Estimated peak RVSP is 35-40 mmHg. Annular region thickened with prior annuloplasty. Mild to moderate tricuspid regurgitation. Pulmonic Valve: Normal appearance of the pulmonic valve. No pulmonic stenosis. Moderate pulmonic regurgitation. Pericardium: Trivial pericardial effusion. Aorta: Normal aortic root. IVC: Normal size and normal respiratory collapse consistent with normal right atrial pressure (<5 mmHg). CONCLUSIONS: Normal left ventricular systolic function. No focal wall motion abnormalities. Normal left ventricular size. Mild concentric left ventricular hypertrophy. Impaired diastolic relaxation Grade I. Ejection fraction is measured at 51 %. Ejection Fraction is visually estimated to be 55-60 %. Global Longitudinal Strain is -10 %. GLS is abnormal. There is severe enlargement of left atrium. There is mild enlargement of right atrium. Mitral valve leaflets appear mildly thickened. Aortic cusps appear mildly sclerotic. Mild to moderate aortic valve regurgitation. Mild pulmonary hypertension based on right ventricular systolic pressure. Estimated peak RVSP is 35-40 mmHg. Annular region thickened with prior annuloplasty. Mild to moderate tricuspid regurgitation. Moderate pulmonic regurgitation. Normal sinus rhythm. Electronically Signed By: Estella Webster MD 08/07/2025 12:07:40 PM CDT Procedure Note Estella Webster MD - 08/07/2025 [facility] Medical [facility] Cardiology [address] [place] [address] [address] [facility] [address], [place] [address] P:[phone] P:[phone] Echocardiographic Report Patient Name: KETURAH ESCOBAR L : 1940 Study Date: 08/07/2025 9:30:28 AM Sex: F Drivematic Machine Operator: Dina Cramer (Tyler)([place]), [facility] Location: [facility] Provider: ESTELLA WEBSTER Height(Cm): 163 BSA: 1.66 Weight(Kg): 60.8 Heart Rate: 69 BP: 112 / 67 Quality: Good Order Provider: ESTELLA WEBSTER PROCEDURES: Echocardiographic Report: Transthoracic echocardiogram with complete 2D, M-Mode, and color Dopplerexamination. With Strain Analysis. INDICATIONS: I42.8 Other cardiomyopathies, Z98.890 Other specified postproceduralstates, Z98.890 Other specified postprocedural states, and I27.20 Pulmonary hypertension,unspecified. MEASUREMENTS: 2D/MM Value Range Doppler ValueRange EF Mod BP 51 % [ 54 - 74 ] CARLOS Vmax 2.15cm2 [ 2.00 - 4.00 ] Estimated EF 55-60 % AV Mean PG 3mmHg LV GLS -10.36 % AV Peak Meek 1.17m/s [ 1.00 - 1.70 ] LVIDd 2D 3.93 cm [ 3.80 - 5.20 ] AV Peak PG 6mmHg LVIDs 2D 2.50 cm [ 2.20 - 3.50 ] AV VTI 23.38cm LVPWd 2D 1.08 cm [ 0.60 - 0.90 ] LVOT Diam 1.95cm [ 1.70 - 2.10 ] IVSd 2D 1.08 cm [ 0.60 - 0.90 ] LVOT Peak Meek 0.84m/s [ 0.70 - 1.10 ] AoR Diam 2D 3.10 cm [ 2.70 - 3.70 ] LVOT VTI 16.79cm LA Volume 76.22 ml [ 22.00 - 52.00 ] PV Peak Meek 1.12m/s [ 0.40 - 0.80 ] LA Volume Index 46 cc/m2 [ 16 - 28 ] TR Peak Meek 2.80m/s [ 1.00 - 2.80 ] RA Volume 29.39 ml TR Peak PG 31mmHg RV S` 8.67 mmHg Tapse 2.54 cm [ 1.71 - 5.00 ] 2D/MM Value Range Doppler ValueRange - FINDINGS: Interpretation Site: Exam was interpreted at [facility]. Left Ventricle: Normal left ventricular systolic function. No focal wall motionabnormalities. Normal left ventricular size. Mild concentric left ventricular hypertrophy.Impaired diastolic relaxation Grade I. Ejection fraction is measured at 51 %. EjectionFraction is visually estimated to be 55-60 %. Global Longitudinal Strain is -10 %. GLS isabnormal. Right Ventricle: Normal right ventricular size. Normal right ventricular systolicfunction. Left Atrium: There is severe enlargement of left atrium. Right Atrium: There is mild enlargement of right atrium. Atrial Septum: Normal atrial septum. Mitral Valve: Mitral valve leaflets appear mildly thickened. Trivial regurgitation ofthe mitral valve. There is no hemodynamically significant mitral stenosis by Doppler. Aortic Valve: No evidence of hemodynamically significant aortic stenosis by Doppler.Aortic cusps appear mildly sclerotic. Trileaflet aortic valve. Mild to moderate aorticvalve regurgitation. Tricuspid Valve: Mild pulmonary hypertension based on right ventricular systolic pressure.Estimated peak RVSP is 35-40 mmHg. Annular region thickened with prior annuloplasty. Mildto moderate tricuspid regurgitation. Pulmonic Valve: Normal appearance of the pulmonic valve. No pulmonic stenosis. Moderatepulmonic regurgitation. Pericardium: Trivial pericardial effusion. Aorta: Normal aortic root. IVC: Normal size and normal respiratory collapse consistent with normal rightatrial pressure (<5 mmHg). CONCLUSIONS: Normal left ventricular systolic function. No focal wall motionabnormalities. Normal left ventricular size. Mild concentric left ventricular hypertrophy.Impaired diastolic relaxation Grade I. Ejection fraction is measured at 51 %. EjectionFraction is visually estimated to be 55-60 %. Global Longitudinal Strain is -10 %. GLS isabnormal. There is severe enlargement of left atrium. There is mild enlargement of right atrium. Mitral valve leaflets appear mildly thickened. Aortic cusps appear mildly sclerotic. Mild to moderate aortic valveregurgitation. Mild pulmonary hypertension based on right ventricular systolic pressure.Estimated peak RVSP is 35-40 mmHg. Annular region thickened with prior annuloplasty. Mildto moderate tricuspid regurgitation. Moderate pulmonic regurgitation. Normal sinus rhythm. Electronically Signed By: Estella Webster MD 08/07/2025 12:07:40 PM CDT Estella Webster MD CV ECHO PROCEDURES Final Result * Dexa Axial Skeleton Bone Density 1 or 2 Site (07/03/2025 11:46 AM CDT) Anatomical Region Laterality Modality Body N/A Radiographic Edith ging Latonya Howard UPWARD BOUND DIRECTOR IMG DXA PROCEDURES Final Resu lt * HM MAMMOGRAPHY (07/04/2024) Luis Boateng MD HEALTH MAINTENANCE Final Result * Colonoscopy (07/06/2023) Anatomical Region Laterality Modality Other Luis Boateng MD ENDOSCOPY PROCEDURES Cathryn l Result from Last 3 Months or Most Recently Relevant to Health Maintenance Insurance MEDICARE [employer] [place] [employer] [employer] [place] MEDICARE [place] MEDICARE [facility] Address: [facility] [address] [place] [address] [employer] Advance Directives For more information, please contact: [phone] * Full Code (Latest Code Status on File) Date Activated Date Inactivated Comments 08/18/2022 11:54 AM 08/25/2022 5:29 PM Care Teams Furnace Filler Relationship Specialty Start Date End Date Shadi Ace MD [address] [place] [address] PCP - General Family Medicine 08/07/25 Rian Bautista NP [address] [place] [address] Referring Physician Nurse Practitioner 09/14/22
--- OUTSIDE RECORDS SUMMARY | 2025-09-07 07:41 | XMS_ITS | Encounter Summary ---
Author Organization [facility] Healthcare Address [address] [place] [address] Care Team Providers Care Operational Test Mechanic Name Role Phone Rian Bautista NP Unavailable Latonya Howard NP Primary Care Provider [phone] Shadi Ace MD Primary Care Provider [phone] Encounter Details Date Type Department Care Team (Late st Contact Info) Description 07/13/2025 Results Follow-Up [facility] Primary Care at [place] [address] [place] [address] Latonya Howard NP [address] [facility] [address] [place] [address] Dexa Axial Skeleton Bone Density 1 or 2 Site Social History Tobacco Use Types Packs/Day Years Used Date Smoking Tobacco: Never Smokeless Tobacco: Never Alcohol Use Standard Drinks/Week Comments Yes 0 [...] often do you attend chur ch or uatsdin services? 1 to 4 times per year 08/31/2022 Do you belong to any clubs o r organizations such as yazidi groups, unions, fraternal or athletic groups, or [...] place to sleep or slept in a nursing home (including now)? No 08/31/2022 Comments No Sex and Gender Information Value Date Recorded Sex Assigned at Not on file Legal Sex Female 3:22 AM NECK SKEWER Gender Identity Not on file Sexual Orientation Not on file documented as of this encounter Plan of Treatment Scheduled Procedures Name Priority Associated Diagnoses Date/Ti me COLONOSCOPY Adenomatous polyp of colon, unspecified part of colon Family history of colon cancer documented as of this encounter Goals Goal Patient Goal Type Associated Problems Recent Progress Patient-Stated? Author DOMINIC General Goal - Patient schedules and keeps appointments with all recommended providers ACO Care Management On track(2021 2:40 PM NECK SKEWER) Mai Lynne, RN Note: Problem: Potential for [...] orders or changes made to medication regimen. documented as of this encounter Visit Diagnoses Not on filedocumented in this encounter Care Teams Operational Test Mechanic Relationship Specialty Start Date End Date Latonya Howard NP [address] [facility] [address] [place] [address] PCP - General Family Medicine 03/14/25 08/06/25 Shadi Ace MD [address] [facility] [address] [place] [address] PCP - General Family Medicine 08/07/25 Rian Bautista NP [address] [facility] [address] [place] [address] Referring Physician Nurse Practitioner 09/14/22 documented as of this encounter
== END 2025-09-07 07:37 | disposition home or self-care (01) ==
LOC: ANHFOHIMG 07:39
PROVIDERS: PCP Family Medicine; Visit Provider Family Medicine
DX: Z12.31 Encounter for screening mammogram for malignant neoplasm of breast (principal)
CPT/HCPCS: 77063; 77067